=== PATIENT | male | born 1995 | race Caucasian/White ===

== ENCOUNTER 2022-09-14 08:08 | Inpatient (IN) | payer MEDICAID, OTHER ==
[2022-09-14] MEDS ORDERED: LIDOCAINE 1% INJ 10MG/ML (30 ML VIAL-PF) SQ ONE (08:43)
--- NOTE | 2022-09-14 08:51 | ED ---
Psych HPI - General Chief Complaint: Psychiatric Symptoms Stated Complaint: Wrist Lac,Psych Time Seen by Provider: 09/14/22 08:29 Source: patient, family, RN notes reviewed Mode of arrival: ambulatory Limitations: no limitations - History of Present Illness Initial Comments: This is a 27-year-old male who presents to the emergency department for psychiat clarissa evaluation. History is provided by both the patient and his father. 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 He has been struggling with PTSD significantly since then. He has also been experimenting with rastafarian, however he has not committed himself to any specific one. His father states that he has been making advent statements that seem rather odd over the last several months. Last night, his mother found him on the floor and his hands were tied with ropes and he had a knife in his hand. He then went upstairs and proceeded to scream. When his father found him upstairs, he had cuts all over his left leg and right arm. Patient states that he tried to kill himself because he made an "oath to his god". He is not currently taking any psychiatric medications nor has he ever been hospitalized for psychiatric problems. Patient otherwise denies any concerns or complaints. Denies any fevers, chills, sore throat, cough, dyspnea, chest pain, palpitations, abdominal pain, nausea, vomiting, diarrhea, back pain, or headaches. MD Complaint: suicidal ideation, feels depressed If Self Harm: admits thoughts of self harm, has plan, has acted on plan - Related Data Home Medications Medication Instructions Recorded Confirmed No Known Home Medications 09/14/22 09/14/22 Allergies Allergy/AdvReac Type Severity Reaction Status Date / Time No Known Allergies Allergy Verified 09/14/22 12:35 Review of Systems ROS Statement: Those systems with pertinent positive or pertinent negative responses have been documented in the HPI. ROS Other: All systems not noted in ROS Statement are negative. Past Medical History Past Medical History: No Reported History History of Any Multi-Drug Resistant Organisms: None Reported Past Surgical History: Adenoidectomy, Tonsillectomy Additional Past Surgical History / Comment(s): shoulder surgery Past Psychological History: No Psychological Hx Reported Smoking Status: Former smoker Past Alcohol Use History: None Reported Past Drug Use History: None Reported General Exam Limitations: no limitations General appearance: alert, in no apparent distress Head exam: Present: atraumatic, normocephalic, normal inspection Respiratory exam: Present: normal lung sounds bilaterally. Absent: respiratory distress, wheezes, rales, rhonchi, stridor Cardiovascular Exam: Present: regular rate, normal rhythm, normal heart sounds. Absent: systolic murmur, diastolic murmur, rubs, gallop, clicks Neurological exam: Present: alert, oriented X3, CN II-XII intact Psychiatric exam: Present: flat affect, suicidal ideation Skin exam: Present: other (1 cm laceration to the right forearm visible subcutaneous tissue. Multiple 1-2 cm lacerations to the top of the left thigh. Bleeding is controlled.) Course Vital Signs 09/14/22 09/14/22 08:19 12:55 Temperature 97.9 F Pulse Rate 69 73 Respiratory 18 18 Rate Blood Pressure 155/93 O2 Sat by Pulse 97 98 Oximetry Procedures - Laceration Laceration #1 Consent Obtained: verbal consent Indication: laceration Site: other (right forearm) Size (cm): 3 Description: linear Depth: simple, single layer Anesthetic Used: lidocaine 1% Anesthesia Technique: local infiltration Amount (mls): 2 Type of Sutures: nylon Size of Sutures: 4-0 Number of Sutures: 3 Technique: simple, interrupted Laceration #2 Consent Obtained: verbal consent Indication: laceration Site: other (Left thigh) Size (cm): 1 Description: linear Depth: simple, single layer Anesthetic Used: lidocaine 1% Anesthesia Technique: local infiltration Amount (mls): 2 Type of Sutures: nylon Size of Sutures: 4-0 Number of Sutures: 2 Technique: simple, interrupted Laceration #3 Consent Obtained: verbal consent Indication: laceration Site: other (left thigh) Size (cm): 2 Description: linear Depth: simple, single layer Anesthetic Used: lidocaine 1% Anesthesia Technique: local infiltration Amount (mls): 2 Size of Sutures: 5-0 Number of Sutures: 2 Technique: simple, interrupted Laceration #4 Consent Obtained: verbal consent Indication: laceration Site: other (left thigh) Size (cm): 2 Description: linear Depth: simple, single layer Anesthetic Used: lidocaine 1% Anesthesia Technique: local infiltration Amount (mls): 2 Type of Sutures: nylon Size of Sutures: 5-0 Number of Sutures: 2 Technique: simple, interrupted Laceration #5 Consent Obtained: verbal consent Indication: laceration Site: other (left thigh) Size (cm): 1 Description: linear Depth: simple, single layer Anesthetic Used: lidocaine 1% Anesthesia Technique: local infiltration Amount (mls): 1 Type of Sutures: nylon Size of Sutures: 4-0 Number of Sutures: 1 Technique: simple, interrupted Medical Decision Making - Medical Decision Making This is a 27-year-old male who presents to the emergency department for psychiatric evaluation. Was pt. sent in by a medical professional or institution? @ -No Did you speak to anyone other than the patient for history? @ -His parents Did you review nursing and triage notes? @ -Yes, and I agree, it is accurate with regards to the patient's symptoms. Were old charts reviewed? @ -No Differential Diagnosis? @ -Differential Mental Health Depression, anxiety, bipolar, psychosis, schizophrenia, borderline personality, situational depression, adjustment disorder, behavioral disorder, brain tumor, malingering, substance abuse, encephalopathy, medication reaction, dementia, hypothyroidism, degenerative neurologic disorder, lupus.... This is not meant to be all-inclusive list What testing was considered but not performed? (CT, X-rays, U/S, labs)? Why? @ -None What meds were considered but not given? Why? @ -None Did you discuss the management of the patient with other professionals? @ -Yes, EPS nurse Ludivina, who advises admission. Did you reconcile home meds? @ -No Was smoking cessation discussed for >3mins.? @ -No Was critical care preformed (if so, how long)? @ -No Were there social determinants of health that impacted care today? How? (Homelessness, low income, unemployed, alcoholism, drug addiction, transportation, low edu. Level, literacy, decrease access to med. care, intermediate, rehab)? @ -No Was there de-escalation of care discussed even if they declined? (Discuss DNR or withdrawal of care, Hospice)? @ -No What co-morbidities impacted this encounter? (DM, HTN, Smoking, COPD, CAD, Can cer, CVA, Hep., AIDS, mental health diagnosis, sleep apnea, morbid obesity)? @ -PTSD Was patient admitted / discharged? @ -Admitted. BAT was 0 and the patient was medically cleared for EPS evaluation. EPS determined that the patient meets admission criteria. I am in agreement with this due to the patient's active suicidal ideations and what appears to be untreated PTSD. He did have several lacerations with visible subcutaneous tissue that required suture placement. A total of 5 lacerations were sutured, which will need to be removed in 5-7 days. He is up-to-date on his tetanus vaccine. Patient admitted to 3 for psychiatric management. Undiagnosed new problem with uncertain prognosis? @ -None Drug Therapy requiring intensive monitoring for toxicity (Heparin, Nitro, In sulin, Cardizem)? @ -None Were any procedures done? @ -Yes, laceration repair with sutures. Diagnosis/symptom? @ -Suicidal ideation Acute, or Chronic, or Acute on Chronic? @ -Acute Uncomplicated (without systemic symptoms) or Complicated (systemic symptoms)? @ -Complicated Side effects of treatment? @ -None Exacerbation, Progression, or Severe Exacerbation] @ -Not applicable Poses a threat to life or bodily function? @ -Yes Diagnosis/symptom? @ -Lacerations Acute, or Chronic, or Acute on Chronic? @ -Acute Uncomplicated (without systemic symptoms) or Complicated (systemic symptoms)? @ -Uncomplicated Side effects of treatment? @ -None Exacerbation, Progression, or Severe Exacerbation] @ -Not applicable Poses a threat to life or bodily function? @ -No This case was discussed in detail with the attending ED physician, Dr. Thompson. Presentation, findings, and treatment plan discussed in detail as well. - Lab Data Result diagrams: 09/14/22 16:41 Lab Results 09/14/22 09/14/22 Range/Units 13:26 13:44 Urine Color Yellow Urine Appearance Cloudy (Clear) Urine pH 6.0 (5.0-8.0) Ur Specific [place] 1.013 (1.001-1.035) Urine Protein Trace H (Negative) Urine Glucose (UA) Negative (Negative) Urine Ketones 1+ H (Negative) Urine Blood Negative (Negative) Urine Nitrite Negative (Negative) Urine Bilirubin Negative (Negative) Urine Urobilinogen <2.0 (<2.0) mg/dL Ur Leukocyte Esterase Small H (Negative) Urine RBC 1 (0-5) /hpf Urine WBC 19 H (0-5) /hpf Urine Bacteria Rare H (None) /hpf Hyaline Casts 1 (0-2) /lpf Urine Mucus Rare H (None) /hpf Urine Opiates Screen Not Detected (NotDetected) Ur Oxycodone Screen Not Detected (NotDetected) Urine Methadone Screen Not Detected (NotDetected) Ur Propoxyphene Screen Not Detected (NotDetected) Ur Barbiturates Screen Not Detected (NotDetected) U Tricyclic Antidepress Not Detected (NotDetected) Ur Phencyclidine Scrn Not Detected (NotDetected) Ur Amphetamines Screen Not Detected (NotDetected) U Methamphetamines Scrn Not Detected (NotDetected) U Benzodiazepines Scrn Not Detected (NotDetected) Urine Cocaine Screen Not Detected (NotDetected) U Marijuana (THC) Screen Detected H (NotDetected) Coronavirus (PCR) Not Detected (Not Detectd) Disposition Clinical Impression: Suicidal ideation Disposition: ADMITTED IP TO THIS HOSP
[2022-09-14 13:59] LABS: Appearance,Urine Cloudy (Clear); Bacteria,Urine Rare /hpf; Bilirubin,Urine Negative (Negative); Blood,Urine Negative (Negative); Color,Urine Yellow; Glucose,Urine (UA) Negative (Negative); Hyaline Casts,Urine 1 /lpf (0-2); Ketones,Urine 1+ (Negative); Leukocyte Esterase,Urine Small (Negative); Mucus,Urine Rare /hpf; Nitrite,Urine Negative (Negative); Protein,Urine Trace (Negative); RBC,Urine 1 /hpf (0-5); Specific Gravity,Urine 1.013 (1.001-1.035); Urobilinogen,Urine <2.0 mg/dL (<2.0); WBC,Urine 19 /hpf (0-5)
[2022-09-14 14:15] LABS: Amphetamine Screen,Urine Not Detected (NotDetected); Barbiturate Screen,Urine Not Detected (NotDetected); Benzodiazepines Screen,Urine Not Detected (NotDetected); Cocaine Screen,Urine Not Detected (NotDetected); Methadone Screen, Urine Not Detected (NotDetected); Opiate Screen,Urine Not Detected (NotDetected); Oxycodone Screen, Urine Not Detected (NotDetected); Phencyclidine Screen,Urine Not Detected (NotDetected); Tricyclic Antidepressant,Urine Not Detected (NotDetected); Urn Cannabinoid Scrn Detected (NotDetected)
[2022-09-14] MEDS ORDERED: MAG HYDROX/AL HYDROX/SIMETH 30 ML CUP PO PRN (14:33)
[2022-09-14] MEDS ORDERED: MAGNESIUM HYDROXIDE 2,400 MG/10 ML CUP PO PRN (14:33)
[2022-09-14] MEDS ORDERED: MELATONIN 5 MG TABLET PO PRN (14:40)
[2022-09-14] MEDS: ACETAMINOPHEN TAB 325 MG TAB PO PRN (15:48)
[2022-09-14 17:15] LABS: Basophils % (A) 0 %; Eosinophils % (A) 0 %; HCT 43.2 % (39.0-53.0); HGB 15.5 gm/dL (13.0-17.5); Lymphocytes # (A) 1.8 k/uL (1.0-4.8); Lymphocytes % (A) 15 %; MCH 31.4 pg (25.0-35.0); MCHC 35.9 g/dL (31.0-37.0); MCV 87.7 fL (80.0-100.0); Mean Platelet Volume 8.6; Monocytes # (A) 0.7 k/uL (0-1.0); Monocytes % (A) 5 %; Neutrophils % (A) 79 %; Platelet Count 292 k/uL (150-450); RBC 4.93 m/uL (4.30-5.90); RDW 12.2 % (11.5-15.5); WBC 12.7 k/uL (3.8-10.6)
[2022-09-14 17:28] LABS: ALT 24 U/L (4-49); AST 34 U/L (17-59); African American GFR (CKD) >90 (>60 ml/min/1.73 sqM); Albumin 4.9 g/dL (3.5-5.0); Alkaline Phosphatase 51 U/L (38-126); Anion Gap 11 mmol/L; Blood Urea Nitrogen 13 mg/dL (9-20); Calcium 10.2 mg/dL (8.4-10.2); Carbon Dioxide 28 mmol/L (22-30); Chloride 99 mmol/L (98-107); Glucose 97 mg/dL (74-99); Non-African American GFR(CKD) >90 (>60 ml/min/1.73 sqM); Potassium 4.7 mmol/L (3.5-5.1); Sodium 138 mmol/L (137-145); Total Bilirubin 1.1 mg/dL (0.2-1.3); Total Protein 7.6 g/dL (6.3-8.2)
--- NOTE | 2022-09-15 03:14 | P.MDCNMH ---
History of Present Illness H&P Date: 09/14/22 Chief Complaint: suicidal ideation 27 year old male with PTSD patient brought by family for concerns regarding suicidal ideation family reported bizarre behavior recently with latter-day context, he tried to commit suicide as a sacrifice, where he used a knife to cause several self inflicted wounds , he was found screaming with rope tide to his arms. patient himself does not provide any history , and history was obtained by reviewing medical records Review of Systems ROS unobtainable: due to mental status Past Medical History Past Medical History: No Reported History History of Any Multi-Drug Resistant Organisms: None Reported Past Surgical History: Adenoidectomy, Tonsillectomy Additional Past Surgical History / Comment(s): shoulder surgery Past Psychological History: No Psychological Hx Reported Smoking Status: Former smoker Past Alcohol Use History: None Reported Past Drug Use History: None Reported Medications and Allergies Home Medications Medication Instructions Recorded Confirmed Type No Known Home Medications 09/14/22 09/14/22 History Allergies Allergy/AdvReac Type Severity Reaction Status Date / Time No Known Allergies Allergy Verified 09/14/22 12:35 Physical Exam Vitals: Vital Signs Temp Pulse Pulse Resp BP BP Pulse Ox 09/14/22 15:58 98.4 F 79 20 167/93 09/14/22 15:50 112 H 137/87 09/14/22 12:55 73 18 155/93 98 09/14/22 08:19 97.9 F 69 18 97 Intake and Output 09/14/22 09/14/22 09/15/22 14:59 22:59 06:59 Other: Weight 70.307 kg 68.3 kg Constitutional: No acute distress,limited exam , patient does not say much Eyes: Anicteric sclerae, moist conjunctiva, Pupils equal round reactive to light ENMT: NC/AT Oropharynx clear, no erythema, or exudates Neck: Supple, no masses, or JVD No carotid bruits No thyromegaly Lungs: Clear to auscultation Clear to percussion Normal respiratory effort, no accessory muscle use Cardiovascular: Heart regular in rate and rhythm, No murmurs, gallops, or rubs No peripheral edema Abdominal: Soft Nontender, no guarding, rebound or rigidity Abdomen moving with respiration Normoactive bowel sounds Skin: several sutured wounds over upper and lower extremities , on right forearm , multiple left thigh 4 times Psychiatric: Alert and oriented to person, place Neuro Muscles Strength 5/5 in all 4 extremities Sensation to light touch grossly present throughout Cranial nerves II-XII grossly intact Cranial Nerve Examination - Cranial Nerves Cranial Nerve II- Optic: Intact Cranial Nerve III- Oculomotor: Intact Cranial Nerve IV- Trochlear: Intact Cranial Nerve V- Trigeminal: Intact Cranial Nerve - Abducens: Intact Cranial Nerve VII- Facial: Intact Cranial Nerve VIII- Auditory: Intact Cranial Nerve IX- Glossopharyngeal: Intact Cranial Nerve X- Vagus: Intact Cranial Nerve XI- Accessory: Intact Cranial Nerve XII- Hypoglossal: Intact Results CBC & Chem 7: 09/14/22 16:41 09/14/22 16:41 Labs: Abnormal Lab Results - Last 24 Hours (Table) 09/14/22 09/14/22 Range/Units 13:44 16:41 WBC 12.7 H (3.8-10.6) k/uL Neutrophils # 10.0 H (1.3-7.7) k/uL Urine Protein Trace H (Negative) Urine Ketones 1+ H (Negative) Ur Leukocyte Esterase Small H (Negative) Urine WBC 19 H (0-5) /hpf Urine Bacteria Rare H (None) /hpf Urine Mucus Rare H (None) /hpf U Marijuana (THC) Screen Detected H (NotDetected) Microbiology - Last 24 Hours (Table) 09/14/22 13:44 Urine Culture - Preliminary Urine,Voided Assessment and Plan Assessment: suicidal ideation , bizarre behavior management per psych blood work reviewed , unremarkable except for mild leukocytosis most likely reactive to multiple self inflicted wounds no evidence of acute infectious process daily wound care continue to monitor off antibiotics thank you for this consultation
[2022-09-15] MEDS: ACETAMINOPHEN TAB 325 MG TAB PO PRN (08:44)
[2022-09-15] MEDS ORDERED: traZODone HCL 50 MG TAB PO PRN (14:29)
--- NOTE | 2022-09-15 14:44 | P.HP ---
Psychiatric H&P - . H&P Date: 09/15/22 History & Physical: Allergies Allergy/AdvReac Type Severity Reaction Status Date / Time No Known Allergies Allergy Verified 09/14/22 12:35 Vital Signs Temp 98.0 F 09/15/22 08:53 Pulse 97 09/15/22 08:53 Resp 16 09/15/22 08:53 BP 139/84 09/15/22 08:53 Pulse Ox 98 09/15/22 08:53 FiO2 Intake & Output 09/14/22 09/15/22 09/15/22 18:59 06:59 18:59 Weight 68.3 kg 68.3 kg Laboratory Last Values WBC 12.7 k/uL (3.8-10.6) H 09/14/22 16:41 RBC 4.93 m/uL (4.30-5.90) 09/14/22 16:41 Hgb 15.5 gm/dL (13.0-17.5) 09/14/22 16:41 Hct 43.2 % (39.0-53.0) 09/14/22 16:41 MCV 87.7 fL (80.0-100.0) 09/14/22 16:41 MCH 31.4 pg (25.0-35.0) 09/14/22 16:41 MCHC 35.9 g/dL (31.0-37.0) 09/14/22 16:41 RDW 12.2 % (11.5-15.5) 09/14/22 16:41 Plt Count 292 k/uL (150-450) 09/14/22 16:41 MPV 8.6 09/14/22 16:41 Neutrophils % 79 % 09/14/22 16:41 Lymphocytes % 15 % 09/14/22 16:41 Monocytes % 5 % 09/14/22 16:41 Eosinophils % 0 % 09/14/22 16:41 Basophils % 0 % 09/14/22 16:41 Neutrophils # 10.0 k/uL (1.3-7.7) H 09/14/22 16:41 Lymphocytes # 1.8 k/uL (1.0-4.8) 09/14/22 16:41 Monocytes # 0.7 k/uL (0-1.0) 09/14/22 16:41 Eosinophils # 0.0 k/uL (0-0.7) 09/14/22 16:41 Basophils # 0.0 k/uL (0-0.2) 09/14/22 16:41 Sodium 138 mmol/L (137-145) 09/14/22 16:41 Potassium 4.7 mmol/L (3.5-5.1) 09/14/22 16:41 Chloride 99 mmol/L (98-107) 09/14/22 16:41 Carbon Dioxide 28 mmol/L (22-30) 09/14/22 16:41 Anion Gap 11 mmol/L 09/14/22 16:41 BUN 13 mg/dL (9-20) 09/14/22 16:41 Creatinine 0.70 mg/dL (0.66-1.25) 09/14/22 16:41 Est GFR (CKD-EPI)AfAm >90 (>60 ml/min/1.73 sqM) 09/14/22 16:41 Est GFR (CKD-EPI)NonAf >90 (>60 ml/min/1.73 sqM) 09/14/22 16:41 Glucose 97 mg/dL (74-99) 09/14/22 16:[address] Glu mg/dL 107 09/14/22 16:41 Hemoglobin A1c 5.4 % (0.0-6.0) 09/14/22 16:41 Calcium 10.2 mg/dL (8.4-10.2) 09/14/22 16:41 Total Bilirubin 1.1 mg/dL (0.2-1.3) 09/14/22 16:41 AST 34 U/L (17-59) 09/14/22 16:41 ALT 24 U/L (4-49) 09/14/22 16:41 Alkaline Phosphatase 51 U/L (38-126) 09/14/22 16:41 Total Protein 7.6 g/dL (6.3-8.2) 09/14/22 16:41 Albumin 4.9 g/dL (3.5-5.0) 09/14/22 16:41 Urine Color Yellow 09/14/22 13:44 Urine Appearance Cloudy (Clear) 09/14/22 13:44 Urine pH 6.0 (5.0-8.0) 09/14/22 13:44 Ur Specific [place] 1.013 (1.001-1.035) 09/14/22 13:44 Urine Protein Trace (Negative) H 09/14/22 13:44 Urine Glucose (UA) Negative (Negative) 09/14/22 13:44 Urine Ketones 1+ (Negative) H 09/14/22 13:44 Urine Blood Negative (Negative) 09/14/22 13:44 Urine Nitrite Negative (Negative) 09/14/22 13:44 Urine Bilirubin Negative (Negative) 09/14/22 13:44 Urine Urobilinogen <2.0 mg/dL (<2.0) 09/14/22 13:44 Ur Leukocyte Esterase Small (Negative) H 09/14/22 13:44 Urine RBC 1 /hpf (0-5) 09/14/22 13:44 Urine WBC 19 /hpf (0-5) H 09/14/22 13:44 Urine Bacteria Rare /hpf (None) H 09/14/22 13:44 Hyaline Casts 1 /lpf (0-2) 09/14/22 13:44 Urine Mucus Rare /hpf (None) H 09/14/22 13:44 Urine Opiates Screen Not Detected (NotDetected) 09/14/22 13:44 Ur Oxycodone Screen Not Detected (NotDetected) 09/14/22 13:44 Urine Methadone Screen Not Detected (NotDetected) 09/14/22 13:44 Ur Propoxyphene Screen Not Detected (NotDetected) 09/14/22 13:44 Ur Barbiturates Screen Not Detected (NotDetected) 09/14/22 13:44 U Tricyclic Antidepress Not Detected (NotDetected) 09/14/22 13:44 Ur Phencyclidine Scrn Not Detected (NotDetected) 09/14/22 13:44 Ur Amphetamines Screen Not Detected (NotDetected) 09/14/22 13:44 U Methamphetamines Scrn Not Detected (NotDetected) 09/14/22 13:44 U Benzodiazepines Scrn Not Detected (NotDetected) 09/14/22 13:44 Urine Cocaine Screen Not Detected (NotDetected) 09/14/22 13:44 U Marijuana (THC) Screen Detected (NotDetected) H 09/14/22 13:44 Coronavirus (PCR) Not Detected (Not Detectd) 09/14/22 13:26 09/15/22 14:36 IDENTIFYING DATA: Patient is a 27-year-old male, currently lives with his parents in a house, 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 HPI: Patient presented to the hospital yesterday by his father. 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 Patient apparently has a history of PTSD and also as reported by father according the ER report that he has been having more odd bahai beliefs and statements and attempted suicide at home, cutting himself several times. Patient apparently was found on the floor with his hands tied and a knife in his hands as well. He had several cuts on his arms and legs. His urine drug screen was positive for THC. Patient was admitted and signed voluntary. He was seen today and agreeable to scientific technical writer in the office. Patient appeared to have very poor eye contact and appeared to be depressed and upset. He was tearful at times. He states that he did attempt suicide at home by cutting himself. He claims that he was feeling "very confused". He had a difficult time verbalizing his stressors however did state that he has been feeling depression also admitted to anxiety. He claims that he has been sleeping fairly and using marijuana to cope. He gave fairly vague answers at times. He states that he did have multiple attempts at suicide and was tearful in describing what he did tell himself. He states that "I must of been feeling bad about something". He did not relate any delusions or paranoia at this time. States that his sleep is then on and off, appetite as been fair. He had significant thought blocking during the interview and appeared to be irritable at times and had poor concentration. 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 He is denying any flashbacks and denying any nightmares. patient denies any current suicidal or homicidal ideations intent or plan. At this time patient denies any auditory or visual hallucinations. Patient denies any flight of ideas racing thoughts and increased in goal directed behavior. Patient admits to using marijuana frequently, about one joint a day. Denies any other recreational drug use. PAST PSYCHIATRIC HISTORY: Patient states that he has history of PTSD, depression and anxiety. Patient denies being on any psychiatric medications. Patient denies any previous psychiatric hospitalizations. Patient denies any psychiatric outpatient follow-up. She states that he did have 1 suicide attempt in the past where he cut himself about a year ago. PMH: As per ER note ALLERGIES: as per EMR CHEMICAL DEPENDENCY HISTORY: as per HPI FAMILY PSYCHIATRIC/SUBSTANCE USE HISTORY: He claims that his aunt has schizophrenia and his mom may have bipolar disorder SOCIAL HISTORY: Patient was born and raised in [facility]. He states that he completed high school and did some college locally. 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 Patient is currently unmarried, has no kids. He lives with his parents. He claims that he did get a DUI about a year ago. MENTAL STATUS EXAM: General Appearance: Patient appears to be short in stature, tearful at times, appears to be impulsive, stated age is alert, attempts to cooperate however is confused at times. Patient appears to have fair hygiene and grooming. Has several tattoos on his arms. Behavior: Patient is seated without any agitated behavior. Tearful at times. Poor eye contact. Speech: Patient's speech is fluent and nonpressured. Hesitant. Bieber. Mood/Affect: Patient reports their mood is depressed and anxious, affect is congruent Suicidality/Homicidality: Patient denies having any homicidal ideation intent or plan. Denies any suicidal ideations intent or plan Perceptions: Patient denies any visual hallucinations and denies any auditory h allucinations Though content/process: Bieber, poverty of content. Vague at times. Memory and concentration: AOX3, poor concentration. Cannot spell "WORLD" backwards Judgment and insight: poor/impulsive STRENGTHS/WEAKNESSES: strength is that patient is resilient. Weakness is that patient has poor judgment and is impulsive INTELLECT: average IMPRESSIONS: Major depressive disorder, severe, recurrent PTSD Cannabis use disorder PLAN: -Patient is admitted under voluntary status to [facility] for stabilization of psychiatric symptoms and safety. Patient has signed adult voluntary form and medication consent and is placed in patient's chart. -Medications : Will start patient on Zoloft 50 mg daily for mood/anxiety, Abilify 2.5 mg daily for mood stabilization/adjunct. Trazodone when necessary f or sleep. Melatonin scheduled for sleep. -zyprexa PRN for agitation/aggression -Patient was counselled on substance abuse and desired to cut back on use -Patient was informed of the risks, benefits and side effects of the medication and patient verbally consented to taking the medications. Patient signed med consent form and was placed in chart. -Internal Medicine consult to perform medical evaluation and physical. -NRT - not needed as patient does not smoke -SW on board for discharge planning. Encourage patient to participate in groups to work on coping skills.
[2022-09-15] MEDS: SERTRALINE 50 MG TAB PO SCH (15:22)
[2022-09-15] MEDS: ARIPiprazole 5 MG TAB PO SCH (15:25)
[2022-09-15 15:41] LABS: Chol/HDL Ratio 3.24 Ratio; LDL Cholesterol,Calculated 97.8 mg/dL (0.0-131.0)
[2022-09-15] MEDS: MELATONIN 3 MG TABLET PO SCH (20:51)
[2022-09-16] MEDS: ARIPiprazole 5 MG TAB PO SCH (08:36)
[2022-09-16] MEDS: SERTRALINE 50 MG TAB PO SCH (08:36)
--- NOTE | 2022-09-16 10:00 | P.PN ---
Progress Note - Text Progress Note Date: 09/16/22 Interval History: Patient was seen laying in bed and was directable and agreeable to speak with chief writer in the office. [he appeared to be more awake today and less confused during conversation. he continues to be concrete. he does appear to have an improvement in his affect. He continues to be hesitant in his speech]. he states that he was going to groups and was up for meals. he continues to state that heis feeling depressed and anxious but it is improving. He states that he is feeling mildly more hopeful. At this time patient denies any suicidal or homical ideations, intent or plan. Patient denies any auditory, visual hallucinations and denies any paranoia or delusions. Patient denies any side effects from the medications and has been compliant with meds. Mental Status Exam: General Appearance: Patient appears to be short in stature, not tearful today, less impulsive, stated age is alert, attempts to cooperate however is less confused. Patient appears to have fair hygiene and grooming. Has several tattoos on his arms Behavior: Patient is seated without any agitated behavior. not tearful. improving eye contact. Speech: Patient's speech is fluent and nonpressured. Hesitant. [place]. Mood/Affect: Patient reports their mood is depressed and anxious, improving mildly, affect is congruent, improving Suicidality/Homicidality: Patient denies having any homicidal ideation intent or plan. Denies any suicidal ideations intent or plan Perceptions: Patient denies any visual hallucinations and denies any auditory hallucinations Though content/process: [place], poverty of content. Memory and concentration: AOX3, poor concentration Judgment and insight: poor/impulsive, improving mildly IMPRESSIONS: Major depressive disorder, severe, recurrent PTSD Cannabis use disorder PLAN: -Patient is admitted under voluntary status to [facility] for stabilization of psychiatric symptoms and safety. Patient has signed adult voluntary form and medication consent and is placed in patient's chart. -Medications : increasing Zoloft 75 mg daily for mood/anxiety, increase Abilify 5 mg daily for mood stabilization/adjunct. Trazodone when necessary for sleep. Melatonin scheduled for sleep. -zyprexa PRN for agitation/aggression -NRT - not needed as patient does not smoke -SW on board for discharge planning. Encourage patient to participate in groups to work on coping skills.
[2022-09-16] MEDS: traZODone HCL 100 MG TAB PO SCH (21:39)
[2022-09-16] MEDS: MELATONIN 3 MG TABLET PO SCH (21:39)
[2022-09-17] MEDS ORDERED: SERTRALINE 25 MG TAB PO SCH (09:00)
[2022-09-17] MEDS ORDERED: ARIPiprazole 5 MG TAB PO SCH (09:00)
--- NOTE | 2022-09-17 11:41 | P.PN ---
Progress Note - Text Progress Note Date: 09/17/22 Interval History: Patient was seen wandering in the hallways and was directable and agreeable to speak with contract technical writer in the office. Patient continues to be fairly hesitant and long pauses before answering questions. [he appeared to be more awake today, appears to be fairly anxious today. he continues to be concrete. he does appear to have mild improvement in his affect. he states that he was going to groups and was up for meals, states that he did go to goal setting group today and states that his goalis to "socialize more". he continues to state that he is feeling depressed and anxious but it is improving. At this time patient denies any suicidal or homical ideations, intent or plan. Patient denies any auditory, visual hallucinations and denies any paranoia or delusions. Patient denies any side effects from the medications and has been compliant with meds. Mental Status Exam: General Appearance: Patient appears to be short in stature, not tearful today, less impulsive, stated age is alert, attempts to cooperate. Patient appears to have fair hygiene and grooming. Has several tattoos on his arms Behavior: Patient is seated without any agitated behavior. not tearful. improving eye contact. Speech: Patient's speech is fluent and nonpressured. Hesitant. [place]. Mood/Affect: Patient reports their mood is improving mildly, affect is congruent, improving Suicidality/Homicidality: Patient denies having any homicidal ideation intent or plan. Denies any suicidal ideations intent or plan Perceptions: Patient denies any visual hallucinations and denies any auditory hallucinations Though content/process: [place], poverty of content Memory and concentration: AOX3, poor concentration Judgment and insight: poor/impulsive, improving mildly IMPRESSIONS: Major depressive disorder, severe, recurrent PTSD Cannabis use disorder PLAN: -Patient is admitted under voluntary status to [facility]HU for stabilization of psychiatric symptoms and safety. Patient has signed adult voluntary form and medication consent and is placed in patient's chart. -Medications : increasing Zoloft 100 mg daily for mood/anxiety, increase Abilify 7.5 mg daily for mood stabilization/adjunct. Trazodone 100 mg qhs for insomnia. Melatonin scheduled for sleep. -zyprexa PRN for agitation/aggression -NRT - not needed as patient does not smoke -SW on board for discharge planning. Encourage patient to participate in groups to work on coping skills.
[2022-09-17] MEDS: traZODone HCL 100 MG TAB PO SCH (21:00)
[2022-09-17] MEDS: MELATONIN 3 MG TABLET PO SCH (21:01)
[2022-09-18] MEDS ORDERED: ARIPiprazole 5 MG TAB PO SCH (09:00)
[2022-09-18] MEDS: SERTRALINE 100 MG TAB PO SCH (09:27)
--- NOTE | 2022-09-18 11:26 | P.PN ---
Progress Note - Text Progress Note Date: 09/18/22 Interval History: Patient was seen lying in his bed this morning and was agreeable to speak to donna camara in the office. Apparently patient went to goal setting group however was not able to speak about his goals and what he wants to accomplish. He continues to state that he is feeling depressed and anxious and believes that he has not been improving so far. He continues to be fairly hesitant and have long positives in between his answers of questions. Continues to be difficult to redirect during conversation and poor eye contact and was concrete. He claims that he slept "on and off" last night however was not able to give a good representation of his sleep pattern. He continues to be fairly isolative on the unit was encouraged to go to groups more. He states that he did speak with his parents yesterday and did state that it was brief however did not claim or state what they talked about. According to nursing report that patient's mother states that the patient is still not doing well and not communicating to them. He continues to appear to be minimizing his need for treatment and hospitalization and feels he is not improving. Claims have a fair appetite however patient has not been eating much due to his diet. At this time patient denies any homical ideations, intent or plan. Patient states that he is still having some suicidal thoughts today however no intent or plan. Patient denies any auditory, visual hallucinations and denies any paranoia or delusions. Patient denies any side effects from the medications and has been compliant with meds. Mental Status Exam: General Appearance: Patient appears to be short in stature, not tearful today, less impulsive, stated age is alert, attempts to cooperate. Patient appears to have fair hygiene and grooming. Has several tattoos on his arms Behavior: Patient is seated without any agitated behavior. Poor eye contact. Speech: Patient's speech is fluent. Hesitant. [place]. Long pauses. Mood/Affect: Patient reports their mood is improving mildly, affect is congruent, improving Suicidality/Homicidality: Patient denies having any homicidal ideation intent or plan. Denies any suicidal ideations intent or plan Perceptions: Patient denies any visual hallucinations and denies any auditory hallucinations Though content/process: [place], poverty of content. No delusions. Memory and concentration: AOX3, poor concentration Judgment and insight: poor IMPRESSIONS: Major depressive disorder, severe, recurrent PTSD Cannabis use disorder PLAN: -Patient is admitted under voluntary status to MHU for stabilization of psychiatric symptoms and safety. Patient has signed adult voluntary form and medication consent and is placed in patient's chart. -Medications : Zoloft 100 mg daily for mood/anxiety will continue titrating up, increase Abilify 10 mg daily for mood stabilization/adjunct. increase Trazodone 150 mg qhs for insomnia. increase Melatonin 10 mg qhs scheduled for sleep. -zyprexa PRN for agitation/aggression -NRT - not needed as patient does not smoke -SW on board for discharge planning. Encourage patient to participate in groups to work on coping skills. asked patient and nursing staff to keep a better eye on sleep and patterns to get a better idea.
[2022-09-18] MEDS: MELATONIN 5 MG TABLET PO SCH (20:34)
[2022-09-18] MEDS ORDERED: traZODone HCL 50 MG TAB PO SCH (21:00)
[2022-09-19] MEDS ORDERED: ARIPiprazole 10 MG TAB PO SCH (09:00)
[2022-09-19] MEDS: SERTRALINE 100 MG TAB PO SCH (09:41)
--- NOTE | 2022-09-19 10:33 | P.PN ---
Progress Note - Text Progress Note Date: 09/19/22 Interval History: Patient was seen lying in his bed this morning and was approached by tech writer to day to speak in the office. Patient was placed on a one-to-one sitter overnight due to patient being paranoid demand to leave and checking doors repeatedly. Patient states her tech writer that "I'll talk to you maybe and a minute". He ended up coming to tech writer's office several minutes later to speak. He was trying to minimize what had occurred last night when asked about it. She states that "I have to try to leave for personal reasons that it rather not talk about". He continues to ask suspicious and paranoid. Continues to demonstrate poor impulse control and hesitancies/thought blocking. He claims that his anxiety and mood are "fine" and appears to be minimizing. Continues to have a constricted affect. We spoke about other medication options and patient is agreeable. He continues to be focused on discharge at times. He states that he did talk to his father yesterday and states that "I just told them I love them" and ended the conversation. Claims have a fair appetite however patient has not been eating much due to his diet. At this time patient denies any homical ideations, intent or plan. Patient denies any suicidal thoughts today, no intent or plan. Patient denies any auditory, visual hallucinations and denies any paranoia or delusions. Patient denies any side effects from the medications and has been compliant with meds. Mental Status Exam: General Appearance: Patient appears to be short in stature, not tearful today, impulsive, stated age is alert, attempts to cooperate. Patient appears to have fair hygiene and grooming. Has several tattoos on his arms Behavior: Patient is seated without any agitated behavior. Poor eye contact. Superficial. Speech: Patient's speech is fluent. Hesitant. [place]. Long pauses. Mood/Affect: Patient reports their mood is improving mildly, affect is congruent, improving Suicidality/Homicidality: Patient denies having any homicidal ideation intent or plan. Denies any suicidal ideations intent or plan Perceptions: Patient denies any visual hallucinations and denies any auditory hallucinations Though content/process: [place], poverty of content. No delusions. Focused on discharge. Memory and concentration: AOX3, poor concentration Judgment and insight: poor/impulsive. IMPRESSIONS: Major depressive disorder, severe, recurrent PTSD Cannabis use disorder PLAN: -Patient is admitted under voluntary status to MHU for stabilization of psychiatric symptoms and safety. Patient has signed adult voluntary form and medication consent and is placed in patient's chart. -Medications : Increase Zoloft 150 mg daily for mood/anxiety will continue titrating up, d/c Abilify and swiotch to zyprexa 7.5 mg qhs for insomnia/psychosis/mood stabilization. change trazodone 50 mg qhs prn for insomnia. Melatonin 10 mg qhs scheduled for sleep. -zyprexa PRN for agitation/aggression -NRT - not needed as patient does not smoke -SW on board for discharge planning. Encourage patient to participate in groups to work on coping skills. will re-evaluate need for 1:1 sitter today with team.
[2022-09-19] MEDS: hydrOXYzine pamoate 25 MG CAP PO PRN (17:58)
[2022-09-19] MEDS: MELATONIN 5 MG TABLET PO SCH (19:53)
[2022-09-19] MEDS: OLANZapine 7.5 MG TAB PO SCH (19:53)
[2022-09-19] MEDS: traZODone HCL 50 MG TAB PO PRN (19:54)
[2022-09-19] MEDS ORDERED: LORazepam 1 MG TAB PO PRN (20:04)
--- NOTE | 2022-09-19 21:25 | P.MHFACE ---
Face to Face Restrain/Seclus - Evaluation Patient's Immediate Situation: Endangers self safety, Endangers staff safety Patient's Reaction to the Intervention: Appropriate, Calm Patient's Medical & Behavioral Condition: Awake, Follows directions Need to Continue or Terminate Restraint or Seclusion: Continue Need to Continue or Terminate Restraint/Seclusion - Comment: Informed by the mental health unit RN that the patient was attempting to elope by bashing on the doors. He had also gotten into there is a unit that he was not supposed to and was no longer following commands and being impulsive. The patient was physically evaluated in the mental health unit with 4 point restraints. The patient had good dorsalis pedis and radial pulses distally to the restraints. He was calm and appropriate and was answering questions. Continue with restraints for now with plans to discontinue as soon as patient is fully directable and no longer a threat to self, other patients, or the staff. Face to Face Eval of Restraint Date: 09/19/22 Face to Face Eval of Restraint Time: 20:36
[2022-09-19] MEDS ORDERED: OLANZapine 10 MG VIAL IM PRN (23:57)
[2022-09-20] MEDS: hydrOXYzine pamoate 25 MG CAP PO PRN ×3 (09:09→20:13)
[2022-09-20] MEDS: SERTRALINE 50 MG TAB PO SCH (09:09)
--- NOTE | 2022-09-20 10:42 | P.PN ---
Progress Note - Text Progress Note Date: 09/20/22 Subjective/objective data: The patient was seen while he was struggling in the corridor with a one-to-one staff member tacking alone The patient initially went to an empty room and sat down on the bed When approached patient agreed to talk Patient however takes long pauses before any response Patient's compensation seems to be brief Patient states that he was trying to get out of here Patient is unable to give any further information Is unable to concentrate or focus remains preoccupied No EPS or tremors noted Mental Status Exam: General Appearance: Patient appears to be short in stature, stated age is alert, attempts to cooperate. Patient appears to have fair hygiene and grooming. Has several tattoos on his arms Behavior: Patient is seated without any agitated behavior. Poor eye contact. Superficial. Speech: Patient's speech is fluent. Hesitant. [place]. Long pauses. Mood/Affect: [place] Suicidality/Homicidality: Patient didn't respond either an affirmative or negative Patient appears to be having difficulty with concentration and attention span Perceptions: Unable to assess Though content/process: [place], poverty of content. Focused on discharge. Memory and concentration: AOX3, poor concentration Judgment and insight: poor/impulsive. IMPRESSIONS: Major depressive disorder, severe, recurrent Intermittent explosive disorder PTSD Cannabis use disorder PLAN: -Patient is admitted under voluntary status to MHU for stabilization of psychiatric symptoms and safety. Patient has signed adult voluntary form and medication consent and is placed in patient's chart. Patient is currently on Zoloft 150 mg daily for mood/anxiety will continue titrating up, zyprexa 7.5 mg qhs for insomnia/psychosis/mood stabilization. trazodone 50 mg qhs prn for insomnia. Melatonin 10 mg qhs scheduled for sleep. -zyprexa PRN for agitation/aggression -NRT - not needed as patient does not smoke -SW on board for discharge planning. Encourage patient to participate in groups to work on coping skills. will re-evaluate need for 1:1 sitter today with team. Patient has received several when necessary Zyprexa and lorazepam for severe agitation Continue current can support Monitor for EPS tremors tardive dyskinesia akathisia QTC prolongation Chino Gardner M.D.
[2022-09-20] MEDS: OLANZapine ODT 5 MG TAB PO PRN (15:20)
[2022-09-20] MEDS: LORazepam 1 MG TAB PO PRN ×2 (17:31→20:14)
[2022-09-20] MEDS: OLANZapine 7.5 MG TAB PO SCH (20:13)
[2022-09-20] MEDS: MELATONIN 5 MG TABLET PO SCH (20:14)
[2022-09-20] MEDS: traZODone HCL 50 MG TAB PO PRN (20:14)
[2022-09-21] MEDS: SERTRALINE 50 MG TAB PO SCH (08:43)
--- NOTE | 2022-09-21 08:57 | P.PN ---
Progress Note - Text Progress Note Date: 09/21/22 The patient was seen for follow-up Subjective/objective data: The patient was sitting in his room on the side of the bed in a slouched posture Patient to when approached stated that he was feeling better but did not elaborate Patient remains on 1:1 observation Patient however takes long pauses before any response Patient's compensation seems to be brief Patient states that he was trying to get out of here Patient is unable to give any further information Is unable to concentrate or focus remains preoccupied No EPS or tremors noted Mental Status Exam: General Appearance: Patient appears to be short in stature, stated age is alert, attempts to cooperate. Patient appears to have fair hygiene and grooming. Has several tattoos on his arms Behavior: Patient is seated without any agitated behavior. Poor eye contact. Superficial. Speech: Patient's speech is fluent. Hesitant. [place]. Long pauses. Mood/Affect: [place] Suicidality/Homicidality: Patient didn't respond either an affirmative or negative Patient appears to be having difficulty with concentration and attention span Perceptions: Unable to assess Though content/process: [place], poverty of content. Focused on discharge. Memory and concentration: AOX3, poor concentration Judgment and insight: poor/impulsive. IMPRESSIONS: Major depressive disorder, severe, recurrent Intermittent explosive disorder PTSD Cannabis use disorder PLAN: -Patient is admitted under voluntary status to MHU for stabilization of psychiatric symptoms and safety. Patient has signed adult voluntary form and medication consent and is placed in patient's chart. Patient is currently on Zoloft 150 mg daily for mood/anxiety will continue ti trating up, zyprexa 7.5 mg qhs for insomnia/psychosis/mood stabilization. trazodone 50 mg qhs prn for insomnia. Melatonin 10 mg qhs scheduled for sleep. -zyprexa PRN for agitation/aggression -NRT - not needed as patient does not smoke -SW on board for discharge planning. Encourage patient to participate in groups to work on coping skills. will re-evaluate need for 1:1 sitter today with team. Patient has received several when necessary Zyprexa and lorazepam for severe agitation Continue current can support Monitor for EPS tremors tardive dyskinesia akathisia QTC prolongation Chino Gardner M.D.
[2022-09-21] MEDS: LORazepam 1 MG TAB PO PRN ×3 (09:22→21:07)
[2022-09-21] MEDS: OLANZapine ODT 5 MG TAB PO PRN ×2 (09:38→15:32)
[2022-09-21] MEDS: hydrOXYzine pamoate 25 MG CAP PO PRN ×3 (09:39→21:07)
[2022-09-21] MEDS ORDERED: OLANZapine 5 MG TAB PO ONE (11:45)
[2022-09-21] MEDS ORDERED: LORazepam 1 MG TAB PO ONE (11:45)
[2022-09-21] MEDS: OLANZapine 7.5 MG TAB PO SCH (21:07)
[2022-09-21] MEDS: MELATONIN 5 MG TABLET PO SCH (21:07)
[2022-09-21] MEDS: traZODone HCL 50 MG TAB PO PRN (21:07)
[2022-09-22] MEDS: SERTRALINE 50 MG TAB PO SCH (08:24)
[2022-09-22] MEDS ORDERED: SERTRALINE 50 MG TAB PO STA (11:41)
--- NOTE | 2022-09-22 13:11 | P.PN ---
Progress Note - Text Progress Note Date: 09/22/22 Interval History: Patient was seen lying in his bed this morning and staring at the ceiling. Chele solorzano is on iron and a one-to-one sitter as patient was aggressive, demanding to leave and needed prn medications as he was not directable. Patient was agreeable to speak to bond underwriter. He continues to be hesitant in his speech. He continues to minimize what had occurred over the weekend. He states that "I was just feeling angry I couldn't leave". She was fairly superficial and guarded still. He still appears to be anxious however claims that his anxiety and mood has been improving. He continues to have very limited insight and judgment. Continues to have a constricted affect. We spoke about other medication options and patient is agreeable to have them adjusted. patient continues to struggle at nighttime with sleep and states that his only been sleeping about 4 hours or so interrupted. At this time patient denies any suicidal or homical ideations, intent or plan. Patient denies any auditory, visual hallucinations and denies any paranoia or delusions. Patient denies any side effects from the medications and has been compliant with meds. Mental Status Exam: General Appearance: Patient appears to be short in stature, not tearful today, impulsive, stated age is alert, attempts to cooperate. Patient appears to have fair hygiene and grooming. Has several tattoos on his arms Behavior: Patient is seated without any agitated behavior. Poor eye contact. Superficial. Speech: Patient's speech is fluent. Hesitant. [place]. Long pauses. Mood/Affect: Patient reports their mood is improving mildly, affect is congruent, improving Suicidality/Homicidality: Patient denies having any homicidal ideation intent or plan. Denies any suicidal ideations intent or plan Perceptions: Patient denies any visual hallucinations and denies any auditory hallucinations Though content/process: [place], poverty of content. No delusions. Focused on discharge. Memory and concentration: AOX3, poor concentration Judgment and insight: poor/impulsive, improving moderately. IMPRESSIONS: Major depressive disorder, severe, recurrent PTSD Cannabis use disorder PLAN: -Patient is admitted under voluntary status to MHU for stabilization of psychiatric symptoms and safety. Patient has signed adult voluntary form and medication consent and is placed in patient's chart. -Medications : Increase Zoloft 200 mg daily for mood/anxiety will continue titrating up, increase zyprexa 15 mg qhs for insomnia/psychosis/mood stabilization. d/c Melatonin and trazodone. will consider adding depakote or lithium if needed. -zyprexa PRN for agitation/aggression -NRT - not needed as patient does not smoke -SW on board for discharge planning. Encourage patient to participate in groups to work on coping skills. continue with 1:1 sitter today as patient continues to have impulse control issues and unpredictable.
[2022-09-22] MEDS: LORazepam 1 MG TAB PO PRN (20:44)
[2022-09-22] MEDS: hydrOXYzine pamoate 25 MG CAP PO PRN (20:44)
[2022-09-22] MEDS ORDERED: OLANZapine 7.5 MG TAB PO SCH (21:00)
[2022-09-22] MEDS ORDERED: WATER FOR INJECTION, STERILE 10 ML IV ONE (22:24)
[2022-09-23] MEDS: SERTRALINE 100 MG TAB PO SCH (08:48)
[2022-09-23] MEDS: LORazepam 1 MG TAB PO PRN ×2 (08:49→21:01)
[2022-09-23] MEDS ORDERED: busPIRone HCl 10 MG TAB PO SCH (10:15)
--- NOTE | 2022-09-23 10:38 | P.PN ---
Progress Note - Text Progress Note Date: 09/23/22 Interval History: Patient was seen wandering the hallways this morning and was agreeable to speak a staff writer in the office. Patient continues to be on a one-to-one sitter due to aggressiveness and impulsivity issues. Patient did receive prn medications this morning. Patient has mildly improving affect today however continues to be hesitant in his speech. He is not reporting any complaints and continues to be superficial with staff writer. He was thankful for treatment today. He continues to state that he feels impulsive and does not know if he would harm himself or not. He claims that he is trying to go to some groups and was seen participating in the social work program coordinator this morning. He states that he slept better last night and was feeling tired this morning. We spoke about other medication options that she is okay to take lithium today. He states that he did speak with his father and states that he asked for forgiveness however did not say why. At this time patient denies any suicidal or homical ideations, intent or plan although patient states that he may or does not feel comfortable with himself. Patient denies any auditory, visual hallucinations and denies any paranoia or delusions. Patient denies any side effects from the medications and has been compliant with meds. Mental Status Exam: General Appearance: Patient appears to be short in stature, not tearful today, impulsive, stated age is alert, attempts to cooperate. Patient appears to have fair hygiene and grooming. Has several tattoos on his arms Behavior: Patient is seated without any agitated behavior. Improving eye contact. Superficial, improving mildly. Speech: Patient's speech is fluent. Hesitant. [place]. Long pauses. Mood/Affect: Patient reports their mood is improving mildly, affect is congruent, improving Suicidality/Homicidality: Patient denies having any homicidal ideation intent or plan. Denies any suicidal ideations intent or plan Perceptions: Patient denies any visual hallucinations and denies any auditory hallucinations Though content/process: [place], poverty of content. No delusions. Memory and concentration: AOX3, poor concentration Judgment and insight: poor/impulsive, improving mildly IMPRESSIONS: Major depressive disorder, severe, recurrent PTSD Cannabis use disorder PLAN: -Patient is admitted under voluntary status to MHU for stabilization of psychiatric symptoms and safety. Patient has signed adult voluntary form and medication consent and is placed in patient's chart. -Medications : continue Zoloft 200 mg daily for mood/anxiety, zyprexa 15 mg qhs for insomnia/psychosis/mood stabilization. added lithium 150 mg tid for suicidal thoughts/ mood stabilization. -zyprexa PRN for agitation/aggression -NRT - not needed as patient does not smoke -SW on board for discharge planning. Encourage patient to participate in groups to work on coping skills. We'll reevaluate today one-to-one sitter with treatment team due to patient's poor impulse control.
[2022-09-23] MEDS: LITHIUM CARBONATE 150 MG CAP PO SCH ×3 (10:51→21:02)
[2022-09-23] MEDS: OLANZapine 10 MG TAB PO SCH (21:01)
[2022-09-23] MEDS: OLANZapine ODT 5 MG TAB PO PRN (21:01)
[2022-09-24] MEDS: LITHIUM CARBONATE 150 MG CAP PO SCH (10:45)
[2022-09-24] MEDS: SERTRALINE 100 MG TAB PO SCH (10:45)
--- NOTE | 2022-09-24 13:09 | P.PN ---
Progress Note - Text Progress Note Date: 09/24/22 Interval History: Patient was seen wandering the hallways this morning and had his 1:1 sitter di scontinue. He was agreeable to speak with promotion writer in the office today. Patient did receive prn medications ;last night due to agitation and lack of sleep. Patient has mildly improving affect today and was more directable. he continues to be hesitant in his speech. He is not reporting any complaints and states that he is feeliong "more myself". He claims that he is trying to go to some groups. He states that he slept better last night however did not mention what had occured over night or holden many hours he slept. At this time patient denies any suicidal or homical ideations, intent or plan. Patient denies any auditory, visual hallucinations and denies any paranoia or delusions. Patient denies any side effects from the medications and has been compliant with meds. Mental Status Exam: General Appearance: Patient appears to be short in stature, not tearful today, impulsive, stated age is alert, attempts to cooperate. Patient appears to have fair hygiene and grooming. Has several tattoos on his arms Behavior: Patient is seated without any agitated behavior. Improving eye contact. Superficial, improving Speech: Patient's speech is fluent. Hesitant. [place]. Long pauses, improving mildly Mood/Affect: Patient reports their mood is improving mildly, affect is congruent, improving Suicidality/Homicidality: Patient denies having any homicidal ideation intent or plan. Denies any suicidal ideations intent or plan Perceptions: Patient denies any visual hallucinations and denies any auditory hallucinations Though content/process: [place], poverty of content. No delusions. Memory and concentration: AOX3, improving concentration Judgment and insight: poor/impulsive, improving mildly IMPRESSIONS: Major depressive disorder, severe, recurrent PTSD Cannabis use disorder PLAN: -Patient is admitted under voluntary status to [facility] for stabilization of psychiatric symptoms and safety. Patient has signed adult voluntary form and medication consent and is placed in patient's chart. -Medications : continue Zoloft 200 mg daily for mood/anxiety, zyprexa 20 mg qhs for insomnia/psychosis/mood stabilization. change lithobid to 450 mg daily for suicidal thoughts/ mood stabilization. trazodone 100 mg qhs for insomnia/mood -zyprexa PRN for agitation/aggression -NRT - not needed as patient does not smoke -SW on board for discharge planning. Encourage patient to participate in groups to work on coping skills. We'll reevaluate today one-to-one sitter as patient usually gets more agitated in the nighttime.
[2022-09-24] MEDS: LITHIUM CARBONATE ER 450 MG TABLET.ER PO SCH (14:06)
[2022-09-24] MEDS ORDERED: traZODone HCL 50 MG TAB PO SCH (21:00)
[2022-09-24] MEDS: OLANZapine 10 MG TAB PO SCH (21:05)
[2022-09-24] MEDS: traZODone HCL 100 MG TAB PO SCH (21:05)
[2022-09-25] MEDS: LITHIUM CARBONATE ER 450 MG TABLET.ER PO SCH (09:07)
[2022-09-25] MEDS: SERTRALINE 100 MG TAB PO SCH (09:07)
[2022-09-25] MEDS: LORazepam 1 MG TAB PO PRN (09:08)
[2022-09-25] MEDS: OLANZapine ODT 5 MG TAB PO PRN (09:44)
--- NOTE | 2022-09-25 09:45 | P.PN ---
Progress Note - Text Progress Note Date: 09/25/22 Interval History: Patient was seen in the morning in his room and was agreeable to speak to sign writer letterer or painter in the office. Patient did receive prn medications ativan this morning for anxiety. last night patient did not require a 1:1 sitter and apparently slept better. he states that he was able to sleep throughout the night. He continues to be fairly concrete, poverty of speech. He appears to be more appropriate during interaction today. Continues to have limited eye contact. He states that he is going to some groups. Claims that his appetite is fair. At this time patient denies any suicidal or homical ideations, intent or plan. Patient denies any auditory, visual hallucinations and denies any paranoia or delusions. Patient denies any side effects from the medications and has been compliant with meds. Mental Status Exam: General Appearance: Patient appears to be short in stature, not tearful today, less impulsive, stated age is alert, attempts to cooperate. Patient appears to have fair hygiene and grooming. Has several tattoos on his arms Behavior: Patient is seated without any agitated behavior. Improving eye contact, improving Speech: Patient's speech is fluent.[place]. Long pauses, improving mildly Mood/Affect: Patient reports their mood is improving mildly, affect is con gruent, improving Suicidality/Homicidality: Patient denies having any homicidal ideation intent or plan. Denies any suicidal ideations intent or plan Perceptions: Patient denies any visual hallucinations and denies any auditory hallucinations Though content/process: [place], poverty of content. No delusions. Memory and concentration: AOX3, improving concentration Judgment and insight: poor/impulsive, improving mildly IMPRESSIONS: Major depressive disorder, severe, recurrent PTSD Cannabis use disorder PLAN: -Patient is admitted under voluntary status to [facility] for stabilization of psychia tric symptoms and safety. Patient has signed adult voluntary form and medication consent and is placed in patient's chart. -Medications : continue Zoloft 200 mg daily for mood/anxiety, zyprexa 20 mg qhs for insomnia/psychosis/mood stabilization. lithobid 450 mg daily for suicidal thoughts/ mood stabilization. trazodone 100 mg qhs for insomnia/mood, added vistaril 25 mg at 0900 and 1300 for anxiety. -zyprexa and ativan PRN for agitation/aggression -NRT - not needed as patient does not smoke -SW on board for discharge planning. Encourage patient to participate in groups to work on coping skills. patient is off 1:1 sitter, improving psychiatrically however will continues to remain high risk for self harm chronically. will look at transferring onto [facility] services through [facility] and poss d/c tomorrow vs early next week.
[2022-09-25] MEDS: hydrOXYzine pamoate 25 MG CAP PO SCH (13:18)
[2022-09-25] MEDS: OLANZapine 10 MG TAB PO SCH (20:14)
[2022-09-25] MEDS: traZODone HCL 100 MG TAB PO SCH (20:14)
[2022-09-26 06:54] VITALS: BP 113/72; PULSE 58; RESP 17; TEMP 98
[2022-09-26] MEDS: hydrOXYzine pamoate 25 MG CAP PO SCH ×2 (09:18→13:05)
[2022-09-26] MEDS: SERTRALINE 100 MG TAB PO SCH (09:19)
[2022-09-26] MEDS: LITHIUM CARBONATE ER 450 MG TABLET.ER PO SCH (09:19)
--- NOTE | 2022-09-26 14:20 | P.PN ---
Progress Note - Text Progress Note Date: 09/26/22 Interval History: Patient was seen in the morning in the lounge sitting with his parents director social and [facility] liaisons. We had a family meeting to discuss patient's progress, as treatment. Patient appeared to be more engaged today and emotional with his parents. We spoke about several options that patient can have through the [facility] and also through [facility] and different services. Patient was seen later on with conventional underwriter in the office. He appears to be more engaged today in conversation. States that he is doing a bit better with his medications. Claims his anxiety has been decreasing. He states that he was able to sleep better last night and did not need extra medications. He claims that he has mainly been keeping to himself and has gone to some groups. We spoke about the lithium level being drawn tomorrow and hopeful plan for possibly Thursday if patient does well over the weekend. Patient denies any auditory, visual hallucinations and denies any paranoia or delusions. Patient denies any side effects from the medications and has been compliant with meds. Mental Status Exam: General Appearance: Patient appears to be short in stature, not tearful today, stated age is alert, attempts to cooperate. Patient appears to have fair hygiene and grooming. Has several tattoos on his arms Behavior: Patient is seated without any agitated behavior. Improving eye contact, improving Speech: Patient's speech is fluent.[place] improving mildly Mood/Affect: Patient reports their mood is improving mildly, affect is congruent, improving Suicidality/Homicidality: Patient denies having any homicidal ideation intent or plan. Denies any suicidal ideations intent or plan Perceptions: Patient denies any visual hallucinations and denies any auditory hallucinations Though content/process: [place], No delusions. More goal oriented today. Memory and concentration: AOX3, improving concentration Judgment and insight: poor/impulsive, improving mildly IMPRESSIONS: Major depressive disorder, severe, recurrent PTSD Cannabis use disorder PLAN: -Patient is admitted under voluntary status to [facility] for stabilization of psychiatric symptoms and safety. Patient has signed adult voluntary form and medication consent and is placed in patient's chart. -Medications : continue Zoloft 200 mg daily for mood/anxiety, zyprexa 20 mg qhs for insomnia/psychosis/mood stabilization. lithobid 450 mg daily for suicidal thoughts/ mood stabilization. trazodone 100 mg qhs for insomnia/mood, vistaril 25 mg at 0900 and 1300 for anxiety. -check lithium level tomorrow morning. -zyprexa and ativan PRN for agitation/aggression -NRT - not needed as patient does not smoke -SW on board for discharge planning. Encourage patient to participate in groups to work on coping skills. he is gradually improving psychiatrically however will continues to remain high risk for self harm chronically. family meeting com pleted today and patient will have [facility] services through [facility] and poss d/c tomorrow vs early next week. [facility] intake on the unit thursday morning.
[2022-09-26] MEDS: LORazepam 1 MG TAB PO PRN (20:23)
[2022-09-26] MEDS: traZODone HCL 100 MG TAB PO SCH (20:23)
[2022-09-26] MEDS: hydrOXYzine pamoate 25 MG CAP PO PRN (20:23)
[2022-09-26] MEDS: OLANZapine 10 MG TAB PO SCH (20:23)
[2022-09-27] MEDS: SERTRALINE 100 MG TAB PO SCH (09:10)
[2022-09-27] MEDS: LITHIUM CARBONATE ER 450 MG TABLET.ER PO SCH (09:11)
[2022-09-27] MEDS: hydrOXYzine pamoate 25 MG CAP PO SCH ×2 (09:11→14:58)
--- NOTE | 2022-09-27 16:33 | P.PN ---
Progress Note - Text Interval history: Patient was seen [wandering the hallways] and was directable and agreeable to speak with writer editor. 's states that he feels "a bit irritable" but overall is doing "very well" states that visits from his family have helped him feel better At this time patient denies any suicidal or homicidal ideations intent or plan. Denies any Auditory or visual hallucinations. Patient denies any side effects from the medications and has been compliant with meds. Mental status exam: General Appearance: [Patient appears to be stated age is alert, directable, and cooperative.] Behavior: [No agitated behavior. Patient is calm and directable] Speech: Patient's speech is fluent and nonpressured. There are pauses after questions are asked Mood/Affect: Mood is improving mildly, affect is congruent and constricted. Suicidality/Homicidality: Patient denies having any suicidal or homicidal ideation intent or plan. Perceptions: Patient denies any auditory or visual hallucinations. Though content/process: [There is no evidence of any delusional thought content and thought process is linear and goal-directed.] Memory and concentration: AOX3, grossly intact for the purposes of this session Judgment and insight: improving mildly Assessment/Plan: Continue with current diagnosis. Patient continues to meet criteria for inpatient psychiatric admission for symptom stabilization and safety.[Patient will be maintained on current psychotropic medication regimen.] Monitor for medication compliance and for any psychotropic medication side effects. Will continue to monitor ongoing response to treatment. Encouraged participation in milieu.
[2022-09-27] MEDS: traZODone HCL 100 MG TAB PO SCH (21:04)
[2022-09-27] MEDS: LORazepam 1 MG TAB PO PRN (21:04)
[2022-09-27] MEDS: OLANZapine 10 MG TAB PO SCH (21:04)
[2022-09-28] MEDS: SERTRALINE 100 MG TAB PO SCH (08:36)
[2022-09-28] MEDS: hydrOXYzine pamoate 25 MG CAP PO SCH ×2 (08:36→12:50)
[2022-09-28] MEDS: LITHIUM CARBONATE ER 450 MG TABLET.ER PO SCH (08:37)
[2022-09-28] MEDS: OLANZapine 10 MG TAB PO SCH (20:43)
[2022-09-28] MEDS: traZODone HCL 100 MG TAB PO SCH (20:43)
[2022-09-29] MEDS: hydrOXYzine pamoate 25 MG CAP PO SCH (10:01)
[2022-09-29] MEDS: SERTRALINE 100 MG TAB PO SCH (10:02)
[2022-09-29] MEDS: LITHIUM CARBONATE ER 450 MG TABLET.ER PO SCH (10:02)
[2022-09-29 10:13] VITALS: BMI 25.5
--- NOTE | 2022-09-29 10:44 | P.DS ---
Providers Date of admission: 09/14/22 14:28 Expected date of discharge: 09/29/22 Attending physician: Jonny Sánchez MD Consults: 09/14/22 14:33 Consult Physician Routine Consulting Provider: [facility] Consult Reason/Comments: medical management Do you want consulting provider notified?: Yes Primary care physician: [facility] Clinic - Discharge Diagnosis(es) (1) Major depressive disorder, recurrent severe without psychotic features Current Visit: Yes Status: Acute Priority: High (2) PTSD (post-traumatic stress disorder) Current Visit: Yes Status: Acute Priority: High (3) Cannabis use disorder Current Visit: Yes Status: Acute Priority: Medium Hospital Course: Admission HPI: Admission note was completed by development writer "Patient is a 27-year-old male, currently lives with his parents in a house, 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 Patient presented to the hospital yesterday by his father. 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 Patient apparently has a history of PTSD and also as reported by father according the ER report that he has been having more odd faith beliefs and statements and attempted suicide at home, cutting himself several times. Patient apparently was found on the floor with his hands tied and a knife in his hands as well. He had several cuts on his arms and legs. His urine drug screen was positive for THC. Patient was admitted and signed voluntary. He was seen today and agreeable to teletypewriter operator in the office. Patient appeared to have very poor eye contact and appeared to be depressed and upset. He was tearful at times. He states that he did attempt suicide at home by cutting himself. He claims that he was feeling "very confused". He had a difficult time verbalizing his stressors however did state that he has been feeling depression also admitted to anxiety. He claims that he has been sleeping fairly and using marijuana to cope. He gave fairly vague answers at times. He states that he did have multiple attempts at suicide and was tearful in describing what he did tell himself. He states that "I must of been feeling bad about something". He did not relate any delusions or paranoia at this time. States that his sleep is then on and off, appetite as been fair. He had significant thought blocking during the interview and appeared to be irritable at times and had poor concentration. 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 He is denying any flashbacks and denying any nightmares. patient denies any current suicidal or homicidal ideations intent or plan. At this time patient denies any auditory or visual hallucinations. Patient denies any flight of ideas racing thoughts and increased in goal directed behavior. Patient admits to using marijuana frequently, about one joint a day. Denies any other recreational drug use." Hospital course: Upon admission to the unit patient was directable and agreeable to commence treatment and signed adult voluntary form. Patient got along well with other patients on the unit and followed unit protocol. Patient was compliant with the medications and denied any side effects throughout hospital course. Patient was started on Zoloft and increased her dose of 200 mg daily for mood/anxiety, Zyprexa 20 mg daily at bedtime for insomnia/psychosis/mood, Lithobid 450 mg daily for suicidal thoughts/mood stabilization, trazodone 150 mg daily at bedtime for insomnia/mood, Vistaril 25 mg at 9 AM and 1 PM for anxiety. Patient spoke of his stressors and engaged in therapy both group and individual. Patient did have an incident where he became agitated and was demanding to leave and was checking the doors and was unable to be redirected and required seclusion and restraints along with prn medication. Patient was also seen by medical team for history and physical exam. Patient had a lithium level drawn the morning of 09/27 which was 0.4. Throughout the course of the hospitalization patient gradually improved with regards to mood, anxiety, suicidal thoughts, aggression/agitation, sleep and returned back to their baseline level of functioning. On the day of discharge patient denied any suicidal or homicidal ideations intent or plan denied any auditory or visual hallucinations. Patient endorsed wanting to live for his health, future and family. The patient denied any access to guns or weapons. Patient denied any paranoia and did not endorse any delusions. Patient does have a significant history of substance abuse and was counseled on abstaining from all substances including alcohol and marijuana. Patient was offered however declined inpatient substance-abuse rehab. Patient was also counseled on the medications and need for regular compliance and was encouraged to follow-up with their outpatient appointment for mental health and also for primary care. Prior to discharge a family meeting took place between [facility] liaisons, director of social services and psychiatrist along with patient's family to discuss patient's care, treatment and discharge planning. Patient's father ensured that the guns and weapons were locked away in the house and patient will not have access to it and they will keep a closer eye on him. They did claim that they will be more supportive with his current situation and will be transitioning to [facility] services. Mental status exam: General Appearance: Patient appears to be short in stature, several tattoos, stated age is alert, pleasant, and cooperative. Patient is in no acute distress and has improved hygiene and grooming Behavior: Patient is calmly seated without any agitated behavior. Speech: Patient's speech is fluent and nonpressured. Mood/Affect: Patient reports their mood is "good", affect is congruent Suicidality/Homicidality: Patient denies having any suicidal or homicidal ideation intent or plan. Perceptions: Patient denies any auditory or visual hallucinations. Though content/process: There is no evidence of any delusional thought content and thought process is linear and goal-directed. more future oriented Memory and concentration: AOX3, grossly intact for the purposes of this session. Can spell "WORLD" backwards correctly. Judgment and insight: chronically impulsive, however has improved with guarded prognosis Impression: Major depressive disorder, without psychotic features Cannabis use disorder PTSD Plan: -Continue with discharge today as patient has improved and stabilized psychiatrically and is not currently an imminent threat to himself and/or others. Patient will remain at chronically elevated risk for harm to self and/or others due to his impulsivity history of severe mental illness and substance abuse. -Continue medications: Zoloft 200 mg daily for mood/anxiety, Zyprexa 20 mg daily at bedtime for insomnia/psychosis/mood stabilization, Lithobid 450 mg daily for suicidal thoughts/mood stabilization, trazodone 150 mg 2 at bedtime for insomnia/mood, Vistaril 25 mg at 9 AM and 1 PM for anxiety. -Patient was counseled on the need for medication compliance and appropriate follow-up at mental health and also primary care for medical issues. Patient verbalized understanding and agreed. -Social work to help coordinate patient's discharge today with [facility] services along with [facility] services and follow-up. Social work also to arrange for patients follow up appointments for psychiatric care along with follow up with primary care provider. -Patient counseled on abstaining from recreational drugs and marijuana and alcohol. Was informed/educated on the adverse effects on their physical and mental health. Patient verbally agreed and understood. -Patient was instructed to return to the hospital or seek immediate medical care if their psychiatric or medical symptoms do worsen or reoccur. Allergies Allergy/AdvReac Type Severity Reaction Status Date / Time No Known Allergies Allergy Verified 09/14/22 12:35 Laboratory Results WBC 12.7 k/uL (3.8-10.6) H 09/14/22 16:41 RBC 4.93 m/uL (4.30-5.90) 09/14/22 16:41 Hgb 15.5 gm/dL (13.0-17.5) 09/14/22 16:41 Hct 43.2 % (39.0-53.0) 09/14/22 16:41 MCV 87.7 fL (80.0-100.0) 09/14/22 16:41 MCH 31.4 pg (25.0-35.0) 09/14/22 16:41 MCHC 35.9 g/dL (31.0-37.0) 09/14/22 16:41 RDW 12.2 % (11.5-15.5) 09/14/22 16:41 Plt Count 292 k/uL (150-450) 09/14/22 16:41 MPV 8.6 09/14/22 16:41 Neutrophils % 79 % 09/14/22 16:41 Lymphocytes % 15 % 09/14/22 16:41 Monocytes % 5 % 09/14/22 16:41 Eosinophils % 0 % 09/14/22 16:41 Basophils % 0 % 09/14/22 16:41 Neutrophils # 10.0 k/uL (1.3-7.7) H 09/14/22 16:41 Lymphocytes # 1.8 k/uL (1.0-4.8) 09/14/22 16:41 Monocytes # 0.7 k/uL (0-1.0) 09/14/22 16:41 Eosinophils # 0.0 k/uL (0-0.7) 09/14/22 16:41 Basophils # 0.0 k/uL (0-0.2) 09/14/22 16:41 Sodium 138 mmol/L (137-145) 09/14/22 16:41 Potassium 4.7 mmol/L (3.5-5.1) 09/14/22 16:41 Chloride 99 mmol/L (98-107) 09/14/22 16:41 Carbon Dioxide 28 mmol/L (22-30) 09/14/22 16:41 Anion Gap 11 mmol/L 09/14/22 16:41 BUN 13 mg/dL (9-20) 09/14/22 16:41 Creatinine 0.70 mg/dL (0.66-1.25) 09/14/22 16:41 Est GFR (CKD-EPI)AfAm >90 (>60 ml/min/1.73 sqM) 09/14/22 16:41 Est GFR (CKD-EPI)NonAf >90 (>60 ml/min/1.73 sqM) 09/14/22 16:41 Glucose 97 mg/dL (74-99) 09/14/22 16:[address] Glu mg/dL 107 09/14/22 16:41 Hemoglobin A1c 5.4 % (0.0-6.0) 09/14/22 16:41 Calcium 10.2 mg/dL (8.4-10.2) 09/14/22 16:41 Total Bilirubin 1.1 mg/dL (0.2-1.3) 09/14/22 16:41 AST 34 U/L (17-59) 09/14/22 16:41 ALT 24 U/L (4-49) 09/14/22 16:41 Alkaline Phosphatase 51 U/L (38-126) 09/14/22 16:41 Total Protein 7.6 g/dL (6.3-8.2) 09/14/22 16:41 Albumin 4.9 g/dL (3.5-5.0) 09/14/22 16:41 Triglycerides 50.50 mg/dL (0.00-149.00) 09/15/22 10:55 Cholesterol 156.00 mg/dL (0.00-200.00) 09/15/22 10:55 LDL Cholesterol, Calc 97.8 mg/dL (0.0-131.0) 09/15/22 10:55 VLDL Cholesterol, Calc 10.10 mg/dL (5.00-40.00) 09/15/22 10:55 HDL Cholesterol 48.10 mg/dL (40.00-60.00) 09/15/22 10:55 Cholesterol/HDL Ratio 3.24 Ratio 09/15/22 10:55 Urine Color Yellow 09/14/22 13:44 Urine Appearance Cloudy (Clear) 09/14/22 13:44 Urine pH 6.0 (5.0-8.0) 09/14/22 13:44 Ur Specific Harper 1.013 (1.001-1.035) 09/14/22 13:44 Urine Protein Trace (Negative) H 09/14/22 13:44 Urine Glucose (UA) Negative (Negative) 09/14/22 13:44 Urine Ketones 1+ (Negative) H 09/14/22 13:44 Urine Blood Negative (Negative) 09/14/22 13:44 Urine Nitrite Negative (Negative) 09/14/22 13:44 Urine Bilirubin Negative (Negative) 09/14/22 13:44 Urine Urobilinogen <2.0 mg/dL (<2.0) 09/14/22 13:44 Ur Leukocyte Esterase Small (Negative) H 09/14/22 13:44 Urine RBC 1 /hpf (0-5) 09/14/22 13:44 Urine WBC 19 /hpf (0-5) H 09/14/22 13:44 Urine Bacteria Rare /hpf (None) H 09/14/22 13:44 Hyaline Casts 1 /lpf (0-2) 09/14/22 13:44 Urine Mucus Rare /hpf (None) H 09/14/22 13:44 Urine Opiates Screen Not Detected (NotDetected) 09/14/22 13:44 Ur Oxycodone Screen Not Detected (NotDetected) 09/14/22 13:44 Urine Methadone Screen Not Detected (NotDetected) 09/14/22 13:44 Ur Propoxyphene Screen Not Detected (NotDetected) 09/14/22 13:44 Ur Barbiturates Screen Not Detected (NotDetected) 09/14/22 13:44 U Tricyclic Antidepress Not Detected (NotDetected) 09/14/22 13:44 Ur Phencyclidine Scrn Not Detected (NotDetected) 09/14/22 13:44 Ur Amphetamines Screen Not Detected (NotDetected) 09/14/22 13:44 U Methamphetamines Scrn Not Detected (NotDetected) 09/14/22 13:44 U Benzodiazepines Scrn Not Detected (NotDetected) 09/14/22 13:44 [place] 0.4 mmol/L 09/27/22 07:15 Urine Cocaine Screen Not Detected (NotDetected) 09/14/22 13:44 U Marijuana (THC) Screen Detected (NotDetected) H 09/14/22 13:44 Coronavirus (PCR) Not Detected (Not Detectd) 09/14/22 13:26 Vital Signs Temp 98.0 F 09/26/22 06:53 Pulse 58 L 09/26/22 06:53 Resp 17 09/26/22 06:53 BP 113/72 09/26/22 06:53 Pulse Ox 99 09/26/22 06:53 FiO2 Intake & Output 09/28/22 09/29/22 09/29/22 18:59 06:59 18:59 Weight 67.6 kg 67.6 kg Patient Condition at Discharge: Stable Plan - Discharge Summary Discharge Rx Participant: No New Discharge Prescriptions: New hydrOXYzine pamoate [Vistaril] 25 mg PO 0900,1300 30 Days #60 cap [place] Carbonate ER [Lithobid] 450 mg PO DAILY 30 Days #30 tab traZODone HCL 150 mg PO HS 30 Days #30 tablet Acetaminophen Tab [Tylenol] 650 mg PO Q4HR PRN tab PRN Reason: Pain/Discomfort Sertraline [Zoloft] 200 mg PO DAILY 30 Days #60 tab OLANZapine [ZyPREXA] 20 mg PO HS 30 Days #60 tab Discharge Medication List Acetaminophen Tab [Tylenol] 650 mg PO Q4HR PRN tab 09/29/22 [Rx] [place] Carbonate ER [Lithobid] 450 mg PO DAILY 30 Days #30 tab 09/29/22 [Rx] OLANZapine [ZyPREXA] 20 mg PO HS 30 Days #60 tab 09/29/22 [Rx] Sertraline [Zoloft] 200 mg PO DAILY 30 Days #60 tab 09/29/22 [Rx] hydrOXYzine pamoate [Vistaril] 25 mg PO 0900,1300 30 Days #60 cap 09/29/22 [Rx] traZODone HCL 150 mg PO HS 30 Days #30 tablet 09/29/22 [Rx] Follow up Appointment(s)/Referral(s): [facility] [Outside] - 10/01/22 9:00 am (with intake) [facility]inic [Primary Care Provider] - 1-2 days Activity/Diet/Wound Care/Special Instructions: Avoid the use of street drugs and alcohol. Take all medications as prescribed. When you are in need of refills on your medications, please contact your medical provider and/or outpatient psychiatrist to have this done. Please go to scheduled outpatient appointments for aftercare treatment. If symptoms return or become worse, call the crisis line at and/or go to the nearest emergency room for evaluation. Discharge Disposition: HOME SELF-CARE
--- NOTE | 2022-09-29 15:13 | P.PN ---
Progress Note - Text Progress Note Date: 09/28/22 Interval history: Patient was seen [wandering the hallways] and was directable and agreeable to speak with personal lines underwriter. States that he is a "bit tired" At this time patient denies any suicidal or homicidal ideations intent or plan. Denies any Auditory or visual hallucinations. Patient denies any side effects from the medications and has been compliant with meds. Mental status exam: General Appearance: [Patient appears to be stated age is alert, directable, and cooperative.] Behavior: [No agitated behavior. Patient is calm and directable] Speech: Patient's speech is fluent and nonpressured. There are pauses after questions are asked Mood/Affect: Mood is "bit tired" , affect is congruent and constricted. Suicidality/Homicidality: Patient denies having any suicidal or homicidal ideation intent or plan. Perceptions: Patient denies any auditory or visual hallucinations. Though content/process: [There is no evidence of any delusional thought content and thought process is linear and goal-directed.] Memory and concentration: AOX3, grossly intact for the purposes of this session Judgment and insight: improving mildly Assessment/Plan: Continue with current diagnosis. Patient continues to meet criteria for inpatient psychiatric admission for symptom stabilization and safety.[Patient will be maintained on current psychotropic medication regimen.] Monitor for medication compliance and for any psychotropic medication side effects. Will continue to monitor ongoing response to treatment. Encouraged participation in milieu.
== END 2022-09-29 13:35 | disposition home or self-care (01) | DRG 751 ==
LOC: EC 08:08 → 3MHU 14:28
PROVIDERS: ADMIT Psychiatry & Neurology Psychiatry; ATTEND Psychiatry & Neurology Psychiatry
DX: F33.2 Major depressive disorder, recurrent severe without psychotic features (principal); F12.90 Cannabis use, unspecified, uncomplicated; F43.10 Post-traumatic stress disorder, unspecified; F63.81 Intermittent explosive disorder; G47.00 Insomnia, unspecified; R45.851 Suicidal ideations; S61.519A Laceration without foreign body of unspecified wrist, initial encounter; Z79.899 Other long term (current) drug therapy; Z87.891 Personal history of nicotine dependence; Z91.51 Personal history of suicidal behavior; Z20.822 Contact with and (suspected) exposure to COVID-19
CPT/HCPCS: 80053; 80061; 80178; 80306; 81001; 82075; 83036; 85025; 87086; 87635; 99285

== ENCOUNTER 2022-10-23 14:41 | Emergency (ER) | payer OTHER ==
[2022-10-23 14:57] VITALS: TEMP 98.2
[2022-10-23 16:35] LABS: African American GFR (CKD) >90 (>60 ml/min/1.73 sqM); Anion Gap 10 mmol/L; Blood Urea Nitrogen 14 mg/dL (9-20); Calcium 10.2 mg/dL (8.4-10.2); Carbon Dioxide 29 mmol/L (22-30); Chloride 99 mmol/L (98-107); Glucose 84 mg/dL (74-99); Lithium 0.2 mmol/L; Non-African American GFR(CKD) >90 (>60 ml/min/1.73 sqM); Potassium 4.9 mmol/L (3.5-5.1); Sodium 138 mmol/L (137-145)
[2022-10-23 17:00] LABS: Amphetamine Screen,Urine Not Detected (NotDetected); Barbiturate Screen,Urine Not Detected (NotDetected); Benzodiazepines Screen,Urine Not Detected (NotDetected); Cocaine Screen,Urine Not Detected (NotDetected); Methadone Screen, Urine Not Detected (NotDetected); Opiate Screen,Urine Not Detected (NotDetected); Oxycodone Screen, Urine Not Detected (NotDetected); Phencyclidine Screen,Urine Not Detected (NotDetected); Tricyclic Antidepressant,Urine Not Detected (NotDetected); Urn Cannabinoid Scrn Detected (NotDetected)
--- NOTE | 2022-10-23 18:32 | ED ---
General Adult HPI - General Chief complaint: Psychiatric Symptoms Stated complaint: mental health Time Seen by Provider: 10/23/22 15:02 Source: patient, family, RN notes reviewed Mode of arrival: ambulatory Limitations: no limitations - History of Present Illness Initial comments: . 27-year-old male with no significant past medical history presents to the emergency department with a chief complaint of medication reaction. Patient reports that he was recently evaluated at this facility for psychiatric evaluation for which she was started on for any medications. He is complaining of worsening fatigue and increased tiredness. Eyes any suicidal or homicidal ideation at this time. He denies any visual or auditory hallucinations. He de nies any recent alcohol or illicit drug use. - Related Data Home Medications Medication Instructions Recorded Confirmed hydrOXYzine pamoate [Vistaril] 25 mg PO BID@0900,1300 10/23/22 10/23/22 Previous Rx's Medication Instructions Recorded Acetaminophen Tab [Tylenol] 650 mg PO Q4HR PRN tab 09/29/22 [place] Carbonate ER [Lithobid] 450 mg PO DAILY 30 Days #30 tab 09/29/22 OLANZapine [ZyPREXA] 20 mg PO HS 30 Days #60 tab 09/29/22 Sertraline [Zoloft] 200 mg PO DAILY 30 Days #60 tab 09/29/22 traZODone HCL 150 mg PO HS 30 Days #30 tablet 09/29/22 Allergies Allergy/AdvReac Type Severity Reaction Status Date / Time No Known Allergies Allergy Verified 10/23/22 14:57 Review of Systems ROS Statement: Those systems with pertinent positive or pertinent negative responses have been documented in the HPI. ROS Other: All systems not noted in ROS Statement are negative. Past Medical History Past Medical History: No Reported History History of Any Multi-Drug Resistant Organisms: None Reported Past Surgical History: Adenoidectomy, Tonsillectomy Additional Past Surgical History / Comment(s): shoulder surgery Past Psychological History: Depression, PTSD Smoking Status: Former smoker Past Alcohol Use History: None Reported Past Drug Use History: None Reported General Exam Limitations: no limitations General appearance: alert, in no apparent distress Head exam: Present: atraumatic, normocephalic, normal inspection Eye exam: Present: normal appearance, PERRL, EOMI. Absent: scleral icterus, conjunctival injection, periorbital swelling ENT exam: Present: normal exam, mucous membranes moist Neck exam: Present: normal inspection. Absent: tenderness, meningismus, lymphadenopathy Respiratory exam: Present: normal lung sounds bilaterally. Absent: respiratory distress, wheezes, rales, rhonchi, stridor Cardiovascular Exam: Present: regular rate, normal rhythm, normal heart sounds. Absent: systolic murmur, diastolic murmur, rubs, gallop, clicks GI/Abdominal exam: Present: soft, normal bowel sounds. Absent: distended, tenderness, guarding, rebound, rigid Extremities exam: Present: normal inspection, full ROM, normal capillary refill. Absent: tenderness, pedal edema, joint swelling, calf tenderness Left Hand L/R Back: Back exam: Present: normal inspection Neurological exam: Present: alert, oriented X3, CN II-XII intact Psychiatric exam: Present: normal affect, normal mood Skin exam: Present: warm, dry, intact, normal color. Absent: rash Course Vital Signs 10/23/22 10/23/22 10/23/22 14:49 17:04 18:51 Temperature 98.2 F Pulse Rate 61 52 L 62 Respiratory 18 20 16 Rate Blood Pressure 149/90 145/81 143/98 O2 Sat by Pulse 98 98 96 Oximetry Procedures - Laceration Laceration #1 Indication: laceration Site: other (L thumb) Depth: simple, single layer Anesthetic Used: lidocaine 1% Anesthesia Technique: local infiltration, nerve block Pre-repair: wound explored, irrigated extensively Type of Sutures: vicryl Size of Sutures: 5-0 Number of Sutures: 2 Technique: simple, interrupted Complications: pain, bleeding, nerve injury, allergic reaction Patient Tolerated Procedure: well, no complications Medical Decision Making - Medical Decision Making Was pt. sent in by a medical professional or institution (PAT Duarte, REVENUE DIRECTOR, urgent care, hospital, or [place] [facility] facility...) When possible be specific @ -[No] Did you speak to anyone other than the patient for history (EMS, parent, family, police, friend...)? What history was obtained from this source @ -[No] Did you review nursing and triage notes (agree or disagree)? Why? @ -[I reviewed and agree with nursing and triage notes] Were old charts reviewed (outside hosp., previous admission, EMS record, old EKG, old radiological studies, urgent care reports/EKG's, [place] [facility] facility records)? Report findings @ -[No old charts were reviewed] Differential Diagnosis (chest pain, altered mental status, abdominal pain women, abdominal pain men, vaginal bleeding, weakness, fever, dyspnea, syncope, headache, dizziness, GI bleed, back pain, seizure, CVA, palpatations, mental health, musculoskeletal)? @ -[not applicable] EKG interpreted by me (3pts min.). @ -[As above] X-rays interpreted by me (1pt min.). @ -[None done] CT interpreted by me (1pt min.). @ -[None done] U/S interpreted by me (1pt. min.). @ -[None done] What testing was considered but not performed or refused? (CT, X-rays, U/S, labs)? Why? @ -[None] What meds were considered but not given or refused? Why? @ -[None] Did you discuss the management of the patient with other professionals (professionals i.e. , PA, REVENUE DIRECTOR, lab, RT, psych nurse, director of social services, special education curriculum specialist, teacher, compliance review officer, case checker)? Give summary @ -[No] Was smoking cessation discussed for >3mins.? @ -[No] Was critical care preformed (if so, how long)? @ -[No] Were there social determinants of health that impacted care today? How? (Homelessness, low income, unemployed, alcoholism, drug addiction, transportation, low edu. Level, literacy, decrease access to med. care, correction, rehab)? @ -[No] Was there de-escalation of care discussed even if they declined (Discuss DNR or withdrawal of care, Hospice)? DNR status @ -[No] What co-morbidities impacted this encounter? (DM, HTN, Smoking, COPD, CAD, Cancer, CVA, ARF, Chemo, Hep., AIDS, mental health diagnosis, sleep apnea, morbid obesity)? @ -[None] Was patient admitted / discharged? Hospital course, mention meds given and route, prescriptions, significant lab abnormalities, going to OR and other pertinent info. @ -Discharged. This is a 27-year-old male who presents to the emergency department with medication reaction patient had a thorough history and physical exam performed while in the ED. Physical exam is essentially unremarkable heart rate regular rate and rhythm lungs clear to auscultation bilaterally, abdomen soft nontender. Patient was seen and evaluated by EPS to does not believe the patient meets inpatient criteria. Patient to be discharge at this time. Return precautions were discussed. Patient discharged in stable condition. Case discussed with Regis Pace who agrees with plan of care Undiagnosed new problem with uncertain prognosis? @ -[No] Drug Therapy requiring intensive monitoring for toxicity (Heparin, Nitro, Insulin, Cardizem)? @ -[No] Were any procedures done? @ -[No] Diagnosis/symptom? @ -medication rxn Acute, or Chronic, or Acute on Chronic? @ -acute Uncomplicated (without systemic symptoms) or Complicated (systemic symptoms)? @ -uncomplicated Side effects of treatment? @ -[No] Exacerbation, Progression, or Severe Exacerbation? @ -[No] Poses a threat to life or bodily function? How? (Chest pain, [place], [place], pneumonia, PE, COPD, DKA, ARF, appy, cholecystitis, CVA, Diverticulitis, Homicidal, Suicidal, threat to staff... and all critical care pts) @ -low likelihood - Lab Data Result diagrams: 10/23/22 15:44 Lab Results 10/23/22 10/23/22 Range/Units 15:44 15:44 Sodium 138 (137-145) mmol/L Potassium 4.9 (3.5-5.1) mmol/L Chloride 99 (98-107) mmol/L Carbon Dioxide 29 (22-30) mmol/L Anion Gap 10 mmol/L BUN 14 (9-20) mg/dL Creatinine 0.64 L (0.66-1.25) mg/dL Est GFR (CKD-EPI)AfAm >90 (>60 ml/min/1.73 sqM) Est GFR (CKD-EPI)NonAf >90 (>60 ml/min/1.73 sqM) Glucose 84 (74-99) mg/dL Calcium 10.2 (8.4-10.2) mg/dL Urine Opiates Screen Not Detected (NotDetected) Ur Oxycodone Screen Not Detected (NotDetected) Urine Methadone Screen Not Detected (NotDetected) Ur Propoxyphene Screen Not Detected (NotDetected) Ur Barbiturates Screen Not Detected (NotDetected) U Tricyclic Antidepress Not Detected (NotDetected) Ur Phencyclidine Scrn Not Detected (NotDetected) Ur Amphetamines Screen Not Detected (NotDetected) U Methamphetamines Scrn Not Detected (NotDetected) U Benzodiazepines Scrn Not Detected (NotDetected) [place] 0.2 mmol/L Urine Cocaine Screen Not Detected (NotDetected) U Marijuana (THC) Screen Detected H (NotDetected) Disposition Clinical Impression: Medication reaction Disposition: HOME SELF-CARE Condition: Stable Additional Instructions: These return to the nearest emergency department if symptoms worsen or persist Is patient prescribed a controlled substance at d/c from ED?: No Referrals: [facility],Clinic [Primary Care Provider] - 1-2 days Time of Disposition: 18:43
[2022-10-23 19:00] VITALS: BP 143/98; PULSE 62; RESP 16
== END 2022-10-23 19:00 | disposition home or self-care (01) ==
LOC: EC 14:41
DX: R45.850 Homicidal ideations (principal); T50.905A Adverse effect of unspecified drugs, medicaments and biological substances, initial encounter; F32.A Depression, unspecified; Z87.891 Personal history of nicotine dependence
CPT/HCPCS: 12001; 36415; 80048; 80178; 80306; 82075; 99284

== ENCOUNTER 2022-10-26 19:47 | Emergency (ER) | payer OTHER ==
[2022-10-26] MEDS ORDERED: LITHIUM CARBONATE 150 MG CAP PO STA (21:58)
--- NOTE | 2022-10-26 22:53 | ED ---
Psych HPI - General Chief Complaint: Psychiatric Symptoms Stated Complaint: mental health Time Seen by Provider: 10/26/22 21:01 Source: patient Mode of arrival: ambulatory - History of Present Illness Initial Comments: Patient is a 27 year old male who presents to the emergency department for psych evaluation. Patient is hyperfixating on congregation thinking he is a god. He has been hearing voices. Patient was admitted for pyschosis last month. He presented in our emergency department on 10/24 for syncope which was thought to be related to multiple sedating medications. Patient has not had any further syncopal episodes but has had increased delusions and hallucinations. He admits to suicidal ideation without plan or intention. He denies homicidal ideation. Admits to marijuana use otherwise denies illicit drug use. No alcohol use. Patient has no other concerns at this time including fever, chills, headache, shortness of breath, cough, chest pain, abdominal pain, nausea, vomiting, diarrhea, and burning with urination. - Related Data Home Medications Medication Instructions Recorded Confirmed OLANZapine [ZyPREXA] 10 mg PO HS 10/26/22 10/26/22 Previous Rx's Medication Instructions Recorded [place] Carbonate ER [Lithobid] 450 mg PO DAILY 30 Days #30 tab 09/29/22 Sertraline [Zoloft] 200 mg PO DAILY 30 Days #60 tab 09/29/22 Allergies Allergy/AdvReac Type Severity Reaction Status Date / Time No Known Allergies Allergy Verified 10/26/22 21:40 Review of Systems ROS Statement: Those systems with pertinent positive or pertinent negative responses have been documented in the HPI. ROS Other: All systems not noted in ROS Statement are negative. Past Medical History Past Medical History: No Reported History History of Any Multi-Drug Resistant Organisms: None Reported Past Surgical History: Adenoidectomy, Tonsillectomy Additional Past Surgical History / Comment(s): shoulder surgery Past Psychological History: Bipolar, Depression, PTSD, Schizophrenia Smoking Status: Former smoker Past Alcohol Use History: None Reported Past Drug Use History: None Reported General Exam Limitations: no limitations General appearance: alert, in no apparent distress Head exam: Present: atraumatic, normocephalic, normal inspection Eye exam: Present: normal appearance, PERRL, EOMI. Absent: scleral icterus, conjunctival injection, periorbital swelling Respiratory exam: Present: normal lung sounds bilaterally. Absent: respiratory distress, wheezes, rales, rhonchi, stridor Cardiovascular Exam: Present: regular rate, normal rhythm, normal heart sounds. Absent: systolic murmur, diastolic murmur, rubs, gallop, clicks GI/Abdominal exam: Present: soft, normal bowel sounds. Absent: distended, tenderness, guarding, rebound, rigid Neurological exam: Present: alert, oriented X3, CN II-XII intact Psychiatric exam: Present: normal affect, normal mood, suicidal ideation Skin exam: Present: warm, dry, intact, normal color. Absent: rash Course Vital Signs 10/26/22 10/27/22 20:38 00:43 Temperature 98.6 F Pulse Rate 60 59 L Respiratory 16 16 Rate Blood Pressure 145/94 135/69 O2 Sat by Pulse 98 100 Oximetry Medical Decision Making - Medical Decision Making EKG taken at 23:48, interpreted by me Sinus rhythm Ventricular rate 63, MD interval 154, QRS duration 92, QTC 389 Was pt. sent in by a medical professional or institution (, PA, MANAGEMENT TECHNICIAN, urgent ca re, hospital, or skilled nursing...) When possible be specific @ -[No] Did you speak to anyone other than the patient for history (EMS, parent, family, police, friend...)? What history was obtained from this source @ -Yes, family who helped provide history Did you review nursing and triage notes (agree or disagree)? Why? @ -[I reviewed and agree with nursing and triage notes] Were old charts reviewed (outside hosp., previous admission, EMS record, old EKG, old radiological studies, urgent care reports/EKG's, skilled nursing records)? Report findings @ -[No old charts were reviewed] Differential Diagnosis (chest pain, altered mental status, abdominal pain women, abdominal pain men, vaginal bleeding, weakness, fever, dyspnea, syncope, headache, dizziness, GI bleed, back pain, seizure, CVA, palpatations, mental health)? @ -Differential Mental Health Depression, anxiety, bipolar, psychosis, schizophrenia, borderline personality, situational depression, adjustment disorder, behavioral disorder, brain tumor, malingering, substance abuse, encephalopathy, medication reaction, dementia, hypothyroidism, degenerative neurologic disorder, lupus.... This is not meant to be all-inclusive list EKG interpreted by me (3pts min.). @ -[As above] X-rays interpreted by me (1pt min.). @ -[None done] CT interpreted by me (1pt min.). @ -[None done] U/S interpreted by me (1pt. min.). @ -[None done] What testing was considered but not performed or refused? (CT, X-rays, U/S, labs)? Why? @ -[None] What meds were considered but not given or refused? Why? @ -[None] Did you discuss the management of the patient with other professionals (professionals i.e. , PA, MANAGEMENT TECHNICIAN, lab, RT, psych nurse, social media content specialist, cushion builder, teacher, fire officer, pillowcase cutter)? Give summary @ -[No] Was smoking cessation discussed for >3mins.? @ -[No] Was critical care preformed (if so, how long)? @ -[No] Were there social determinants of health that impacted care today? How? (Homelessness, low income, unemployed, alcoholism, drug addiction, transportation, low edu. Level, literacy, decrease access to med. care, skilled nursing, rehab)? @ -[No] Was there de-escalation of care discussed even if they declined (Discuss DNR or withdrawal of care, Hospice)? DNR status @ -[No] What co-morbidities impacted this encounter? (DM, HTN, Smoking, COPD, CAD, Cancer, CVA, ARF, Chemo, Hep., AIDS, mental health diagnosis, sleep apnea, m orbid obesity)? @ -[None] Was patient admitted / discharged? Hospital course, mention meds given and route, prescriptions, significant lab abnormalities, going to OR and other pertinent info. @ -Patient presenting for psychiatric evaluation. Further testing with laboratory studies and imaging not indicated at this time. Patient is cleared medically for EPS evaluation. Patient evaluated by EPS [facility]. Undiagnosed new problem with uncertain prognosis? @ -[No] Drug Therapy requiring intensive monitoring for toxicity (Heparin, Nitro, Insulin, Cardizem)? @ -[No] Were any procedures done? @ -[No] Diagnosis/symptom? @ -delusions, hallucinations, suicidal ideation Acute, or Chronic, or Acute on Chronic? @ -acute on chronic Uncomplicated (without systemic symptoms) or Complicated (systemic symptoms)? @ -[default] Side effects of treatment? @ -[No] Exacerbation, Progression, or Severe Exacerbation? @ -[No] Poses a threat to life or bodily function? How? (Chest pain, [place], [place], pneumonia, PE, COPD, DKA, ARF, appy, cholecystitis, CVA, Diverticulitis, Homicidal, Suicidal, threat to staff... and all critical care pts) @ -yes Dr. Carrion is my attending - Lab Data Lab Results 10/26/22 10/26/22 10/26/22 Range/Units 22:20 23:47 23:55 Urine Color Yellow Urine Appearance Clear (Clear) Urine pH 6.5 (5.0-8.0) Ur Specific [place] 1.019 (1.001-1.035) Urine Protein Negative (Negative) Urine Glucose (UA) Negative (Negative) Urine Ketones Negative (Negative) Urine Blood Negative (Negative) Urine Nitrite Negative (Negative) Urine Bilirubin Negative (Negative) Urine Urobilinogen <2.0 (<2.0) mg/dL Ur Leukocyte Esterase Negative (Negative) Urine Opiates Screen Not Detected (NotDetected) Ur Oxycodone Screen Not Detected (NotDetected) Urine Methadone Screen Not Detected (NotDetected) Ur Propoxyphene Screen Not Detected (NotDetected) Ur Barbiturates Screen Not Detected (NotDetected) U Tricyclic Antidepress Not Detected (NotDetected) Ur Phencyclidine Scrn Not Detected (NotDetected) Ur Amphetamines Screen Not Detected (NotDetected) U Methamphetamines Scrn Not Detected (NotDetected) U Benzodiazepines Scrn Not Detected (NotDetected) [place] 0.5 mmol/L Urine Cocaine Screen Not Detected (NotDetected) U Marijuana (THC) Screen Detected H (NotDetected) Coronavirus (PCR) Not Detected (Not Detectd) Disposition Clinical Impression: Delusions, Suicidal ideation Disposition: TRANSFER TO PSYCH HOSP/UNIT Condition: Good Referrals: [facility],Clinic [Primary Care Provider] - 1-2 days - Out of Hospital Transfer - Req. Specs Out of Hospital Transfer - Requested Specifics: Psychiatric Non-ICU ([place])
[2022-10-27 00:14] LABS: Appearance,Urine Clear (Clear); Bilirubin,Urine Negative (Negative); Blood,Urine Negative (Negative); Color,Urine Yellow; Glucose,Urine (UA) Negative (Negative); Ketones,Urine Negative (Negative); Leukocyte Esterase,Urine Negative (Negative); Nitrite,Urine Negative (Negative); PH, Urine 6.5 (5.0-8.0); Protein,Urine Negative (Negative); Specific Gravity,Urine 1.019 (1.001-1.035); Urobilinogen,Urine <2.0 mg/dL (<2.0)
[2022-10-27 00:48] LABS: Amphetamine Screen,Urine Not Detected (NotDetected); Barbiturate Screen,Urine Not Detected (NotDetected); Benzodiazepines Screen,Urine Not Detected (NotDetected); Cocaine Screen,Urine Not Detected (NotDetected); Methadone Screen, Urine Not Detected (NotDetected); Opiate Screen,Urine Not Detected (NotDetected); Oxycodone Screen, Urine Not Detected (NotDetected); Phencyclidine Screen,Urine Not Detected (NotDetected); Tricyclic Antidepressant,Urine Not Detected (NotDetected)
[2022-10-27 00:49] LABS: Urn Cannabinoid Scrn Detected (NotDetected)
[2022-10-27 02:06] LABS: ALT 50 U/L (4-49); AST 38 U/L (17-59); African American GFR (CKD) >90 (>60 ml/min/1.73 sqM); Albumin 5.4 g/dL (3.5-5.0); Alkaline Phosphatase 55 U/L (38-126); Anion Gap 14 mmol/L; Blood Urea Nitrogen 16 mg/dL (9-20); Calcium 10.5 mg/dL (8.4-10.2); Carbon Dioxide 26 mmol/L (22-30); Chloride 98 mmol/L (98-107); Glucose 93 mg/dL (74-99); Non-African American GFR(CKD) >90 (>60 ml/min/1.73 sqM); Sodium 138 mmol/L (137-145); Total Bilirubin 1.1 mg/dL (0.2-1.3); Total Protein 8.7 g/dL (6.3-8.2)
[2022-10-27 02:13] LABS: Basophils % (A) 0 %; Eosinophils # (A) 0.1 k/uL (0-0.7); Eosinophils % (A) 2 %; HCT 42.4 % (39.0-53.0); HGB 14.4 gm/dL (13.0-17.5); Lymphocytes % (A) 27 %; MCH 30.3 pg (25.0-35.0); MCHC 34.1 g/dL (31.0-37.0); MCV 88.9 fL (80.0-100.0); Mean Platelet Volume 9.1; Monocytes # (A) 0.4 k/uL (0-1.0); Monocytes % (A) 6 %; Neutrophils # (A) 4.6 k/uL (1.3-7.7); Neutrophils % (A) 63 %; Platelet Count 310 k/uL (150-450); RBC 4.77 m/uL (4.30-5.90); RDW 12.6 % (11.5-15.5); WBC 7.4 k/uL (3.8-10.6)
[2022-10-27 02:14] LABS: Potassium 4.8 mmol/L (3.5-5.1)
[2022-10-27 04:22] LABS: T4, Free (Free Thyroxine) 1.48 ng/dL (0.78-2.19)
[2022-10-27] MEDS ORDERED: OLANZapine 10 MG TAB PO SCH (09:00)
[2022-10-27 12:57] VITALS: BP 142/90; RESP 18; TEMP 98.2
[2022-10-27 14:10] VITALS: PULSE 62
== END 2022-10-27 14:10 ==
LOC: EC 19:47
DX: F22 Delusional disorders (principal); R45.851 Suicidal ideations; F31.9 Bipolar disorder, unspecified; Z87.891 Personal history of nicotine dependence; Z20.822 Contact with and (suspected) exposure to COVID-19
CPT/HCPCS: 36415; 80053; 80178; 80306; 81003; 84439; 84443; 85025; 87635; 93005; 99285

== ENCOUNTER 2022-11-15 21:03 | Emergency (ER) | payer OTHER ==
[2022-11-15 21:11] VITALS: TEMP 98.4
--- NOTE | 2022-11-15 21:28 | ED ---
Dizziness HPI - General Chief Complaint: Syncope Stated Complaint: Fainting Time Seen by Provider: 11/15/22 21:25 Source: patient, family, RN notes reviewed, old records reviewed Mode of arrival: wheelchair Limitations: no limitations - History of Present Illness Initial Comments: This is a 27-year-old male presents today for evaluation of syncopal event. Patient has been suffering from significant syncope for about a month now likely medication induced with severe history of PTSD. No current headache chest pain shortness of breath or abdominal pain. Significant medication changes since as of late. MD Complaint: dizziness, lightheadedness -: hour(s) Timing: sudden onset, intermittent, waxing/waning Description: near-syncope, other (Full syncopal events) History of Same: Yes History of Trauma: Yes (Posttraumatic stress disorder) Severity: severe Improves With: nothing Worsens With: nothing Associated Symptoms: denies other symptoms - Related Data Home Medications Medication Instructions Recorded Confirmed OLANZapine [ZyPREXA] 10 mg PO HS 10/26/22 10/26/22 Previous Rx's Medication Instructions Recorded [employer] Carbonate ER [Lithobid] 450 mg PO DAILY 30 Days #30 tab 09/29/22 Sertraline [Zoloft] 200 mg PO DAILY 30 Days #60 tab 09/29/22 Allergies Allergy/AdvReac Type Severity Reaction Status Date / Time No Known Allergies Allergy Verified 11/15/22 21:10 Review of Systems ROS Statement: Those systems with pertinent positive or pertinent negative responses have been documented in the HPI. ROS Other: All systems not noted in ROS Statement are negative. Past Medical History Past Medical History: No Reported History History of Any Multi-Drug Resistant Organisms: None Reported Past Surgical History: Adenoidectomy, Orthopedic Surgery, Tonsillectomy Additional Past Surgical History / Comment(s): shoulder surgery, eye surgery, Past Psychological History: Bipolar, Depression, PTSD, Schizophrenia Smoking Status: Current every day smoker Past Alcohol Use History: None Reported Past Drug Use History: Marijuana General Exam Limitations: no limitations General appearance: alert, in no apparent distress Head exam: Present: atraumatic, normocephalic, normal inspection Eye exam: Present: normal appearance, PERRL, EOMI. Absent: scleral icterus, conjunctival injection, periorbital swelling ENT exam: Present: normal exam, mucous membranes moist Neck exam: Present: normal inspection. Absent: tenderness, meningismus, lymphad enopathy Respiratory exam: Present: normal lung sounds bilaterally. Absent: respiratory distress, wheezes, rales, rhonchi, stridor Cardiovascular Exam: Present: regular rate, normal rhythm, normal heart sounds. Absent: systolic murmur, diastolic murmur, rubs, gallop, clicks GI/Abdominal exam: Present: soft, normal bowel sounds. Absent: distended, tenderness, guarding, rebound, rigid Extremities exam: Present: normal inspection, full ROM, normal capillary refill. Absent: tenderness, pedal edema, joint swelling, calf tenderness Back exam: Present: normal inspection Neurological exam: Present: alert, oriented X3, CN II-XII intact Psychiatric exam: Present: normal affect, normal mood Skin exam: Present: warm, dry, intact, normal color. Absent: rash Course Vital Signs 11/15/22 11/15/22 21:06 23:30 Temperature 98.4 F Pulse Rate 84 97 Respiratory 20 16 Rate Blood Pressure 138/70 117/78 O2 Sat by Pulse 98 Oximetry - Reevaluation(s) Reevaluation #1: 11/15/22 22:44 Medical records reviewed Reevaluation #2: 11/15/22 22:45 Patient without syncopal episode once he got to the room he did have a syncopal episode in triage Reevaluation #3: 11/15/22 22:45 Patient informed results questions answered Reevaluation #4: 11/15/22 22:45 Was pt. sent in by a medical professional or institution? @ -no Did you speak to anyone other than the patient for history? @ -Yes father is at bedside who provides history in regards to prior hospitalization and evaluation of syncope as well as inpatient psychiatric hospitalization, patient is aware of conversation although does seem distracted and not participating history of present illness Did you review nursing and triage notes? @ -agree Were old charts reviewed? @ -no Differential Diagnosis? @ -prior EKG interpreted by me (3pts min.)? @ -yes X-rays interpreted by me (1pt min.)? @ -Now CT interpreted by me (1pt min.)? @ -no U/S interpreted by me (1pt. min.)? @ -no What testing was considered but not performed? (CT, X-rays, U/S, labs)? Why? @ -no What meds were considered but not given? Why? @ -no Did you discuss the management of the patient with other professionals? @ -no Did you reconcile home meds? @ -no Was smoking cessation discussed for >3mins.? @ -no Was critical care preformed (if so, how long)? @ -no Were there social determinants of health that impacted care today? How? (Homelessness, low income, unemployed, alcoholism, drug addiction, transportation, low edu. Level, literacy, decrease access to med. care, residential, rehab)? @ -no Was there de-escalation of care discussed even if they declined? (Discuss DNR or withdrawal of care, Hospice)? @ -no What co-morbidities impacted this encounter? (DM, HTN, Smoking, COPD, CAD, Cancer, CVA, Hep., AIDS, mental health diagnosis, sleep apnea, morbid obesity)? @ -none Was patient admitted / discharged? @ -This is a 27-year-old male to the ER for evaluation. Patient presents today for evaluation of syncope with history of significant recurrent syncope also remote history of seizure patient has recently been aching without seizure syncopal event recently had a lengthy workup at the [facility]. No cause of syncope or seizure found. Patient feels well here in the ER and can be discharged home Discharged Undiagnosed new problem with uncertain prognosis? @ -no Drug Therapy requiring intensive monitoring for toxicity (Heparin, Nitro, Insulin, Cardizem)? @ -no Were any procedures done? @ -no Diagnosis/symptom? @ -Syncope, PTSD, anxiety Acute, or Chronic, or Acute on Chronic? @ -Acute Uncomplicated (without systemic symptoms) or Complicated (systemic symptoms)? @ -uncomplicated Side effects of treatment? @ -no Exacerbation, Progression, or Severe Exacerbation] @ -no Poses a threat to life or bodily function? @ -no Reevaluation #5: 11/15/22 22:45 Differential Syncope: Valvular disease, hypertrophic cardiomyopathy, pulmonary embolism, tamponade, tachycardia, bradycardia, [place], hypovolemia, hemorrhage, dissection, anemia, intracranial hemorrhage, seizure, hypoglycemia, carbon monoxide poisoning, this is not meant to be an all-inclusive list. EKG Findings - EKG Comments: EKG Findings:: EKG shows sinus 80 KS 147 QRS 91 QTC 390 - EKG Results: EKG: interpreted by CHRISTOPHER Medical Decision Making - Medical Decision Making 27 male did have who did have a syncopal event at home multiple times also had recurrent syncopal event here in the hospital, could be psychiatric related psychogenic, [facility] is that she will suffers from PTSD. No acute findings here in the ER patient feels improved and reevalua tion with no headache chest pain shortness of breath abdominal pain. Patient recent extensive workup for cause of syncope which was negative - Lab Data Result diagrams: 11/15/22 22:20 11/15/22 22:20 Lab Results 11/15/22 11/15/22 11/15/22 Range/Units 22:20 22:20 22:20 WBC 9.8 (3.8-10.6) k/uL RBC 4.18 L (4.30-5.90) m/uL Hgb 12.9 L (13.0-17.5) gm/dL Hct 38.2 L (39.0-53.0) % MCV 91.5 (80.0-100.0) fL MCH 30.8 (25.0-35.0) pg MCHC 33.6 (31.0-37.0) g/dL RDW 13.0 (11.5-15.5) % Plt Count 293 (150-450) k/uL MPV 8.1 Neutrophils % 79 % Lymphocytes % 14 % Monocytes % 5 % Eosinophils % 1 % Basophils % 0 % Neutrophils # 7.7 (1.3-7.7) k/uL Lymphocytes # 1.4 (1.0-4.8) k/uL Monocytes # 0.5 (0-1.0) k/uL Eosinophils # 0.1 (0-0.7) k/uL Basophils # 0.0 (0-0.2) k/uL PT 10.3 (9.0-12.0) sec INR 1.0 (<1.2) APTT 22.3 (22.0-30.0) sec Sodium 141 (137-145) mmol/L Potassium 4.3 (3.5-5.1) mmol/L Chloride 103 (98-107) mmol/L Carbon Dioxide 27 (22-30) mmol/L Anion Gap 11 mmol/L BUN 11 (9-20) mg/dL Creatinine 0.65 L (0.66-1.25) mg/dL Est GFR (CKD-EPI)AfAm >90 (>60 ml/min/1.73 sqM) Est GFR (CKD-EPI)NonAf >90 (>60 ml/min/1.73 sqM) Glucose 100 H (74-99) mg/dL Plasma Lactic Acid Gregor (0.7-2.0) mmol/L Calcium 9.7 (8.4-10.2) mg/dL Phosphorus 3.6 (2.5-4.5) mg/dL Magnesium 1.8 (1.6-2.3) mg/dL Total Bilirubin 0.3 (0.2-1.3) mg/dL AST 32 (17-59) U/L ALT 25 (4-49) U/L Alkaline Phosphatase 45 (38-126) U/L Troponin I (0.000-0.034) ng/mL Total Protein 7.2 (6.3-8.2) g/dL Albumin 4.5 (3.5-5.0) g/dL 11/15/22 11/15/22 Range/Units 22:20 22:20 WBC (3.8-10.6) k/uL RBC (4.30-5.90) m/uL Hgb (13.0-17.5) gm/dL Hct (39.0-53.0) % MCV (80.0-100.0) fL MCH (25.0-35.0) pg MCHC (31.0-37.0) g/dL RDW (11.5-15.5) % Plt Count (150-450) k/uL MPV Neutrophils % % Lymphocytes % % Monocytes % % Eosinophils % % Basophils % % Neutrophils # (1.3-7.7) k/uL Lymphocytes # (1.0-4.8) k/uL Monocytes # (0-1.0) k/uL Eosinophils # (0-0.7) k/uL Basophils # (0-0.2) k/uL PT (9.0-12.0) sec INR (<1.2) APTT (22.0-30.0) sec Sodium (137-145) mmol/L Potassium (3.5-5.1) mmol/L Chloride (98-107) mmol/L Carbon Dioxide (22-30) mmol/L Anion Gap mmol/L BUN (9-20) mg/dL Creatinine (0.66-1.25) mg/dL Est GFR (CKD-EPI)AfAm (>60 ml/min/1.73 sqM) Est GFR (CKD-EPI)NonAf (>60 ml/min/1.73 sqM) Glucose (74-99) mg/dL Plasma Lactic Acid Gregor 2.0 (0.7-2.0) mmol/L Calcium (8.4-10.2) mg/dL Phosphorus (2.5-4.5) mg/dL Magnesium (1.6-2.3) mg/dL Total Bilirubin (0.2-1.3) mg/dL AST (17-59) U/L ALT (4-49) U/L Alkaline Phosphatase (38-126) U/L Troponin I <0.012 (0.000-0.034) ng/mL Total Protein (6.3-8.2) g/dL Albumin (3.5-5.0) g/dL - EKG Data -: EKG Interpreted by Me (EKG is sinus 80 pr 147 QRS 90 QTC 390) Disposition Clinical Impression: Syncope, Vasovagal syncope, Major depressive disorder, recurrent severe without psychotic features, PTSD (post-traumatic stress disorder), Cannabis use disorder Disposition: HOME SELF-CARE Condition: Good Instructions (If sedation given, give patient instructions): Syncope (ED) Is patient prescribed a controlled substance at d/c from ED?: No Referrals: Nonstaff,Physician [Primary Care Provider] - 1-2 days Time of Disposition: 22:10
[2022-11-15] MEDS ORDERED: SODIUM CHLORIDE 0.9% 1,000 ML IV STA (22:04)
[2022-11-15 22:43] LABS: Basophils % (A) 0 %; Eosinophils # (A) 0.1 k/uL (0-0.7); Eosinophils % (A) 1 %; HCT 38.2 % (39.0-53.0); HGB 12.9 gm/dL (13.0-17.5); Lymphocytes # (A) 1.4 k/uL (1.0-4.8); Lymphocytes % (A) 14 %; MCH 30.8 pg (25.0-35.0); MCHC 33.6 g/dL (31.0-37.0); MCV 91.5 fL (80.0-100.0); Mean Platelet Volume 8.1; Monocytes # (A) 0.5 k/uL (0-1.0); Monocytes % (A) 5 %; Neutrophils # (A) 7.7 k/uL (1.3-7.7); Neutrophils % (A) 79 %; Platelet Count 293 k/uL (150-450); RBC 4.18 m/uL (4.30-5.90); WBC 9.8 k/uL (3.8-10.6)
[2022-11-15 22:55] LABS: ALT 25 U/L (4-49); AST 32 U/L (17-59); African American GFR (CKD) >90 (>60 ml/min/1.73 sqM); Albumin 4.5 g/dL (3.5-5.0); Alkaline Phosphatase 45 U/L (38-126); Anion Gap 11 mmol/L; Blood Urea Nitrogen 11 mg/dL (9-20); Calcium 9.7 mg/dL (8.4-10.2); Carbon Dioxide 27 mmol/L (22-30); Chloride 103 mmol/L (98-107); Glucose 100 mg/dL (74-99); Magnesium 1.8 mg/dL (1.6-2.3); Non-African American GFR(CKD) >90 (>60 ml/min/1.73 sqM); Phosphorus 3.6 mg/dL (2.5-4.5); Potassium 4.3 mmol/L (3.5-5.1); Sodium 141 mmol/L (137-145); Total Bilirubin 0.3 mg/dL (0.2-1.3); Total Protein 7.2 g/dL (6.3-8.2)
[2022-11-15 23:01] LABS: Partial Thromboplastin Time 22.3 sec (22.0-30.0); Prothrombin Time 10.3 sec (9.0-12.0)
[2022-11-16 00:01] VITALS: BP 117/78; PULSE 97; RESP 16
== END 2022-11-15 23:30 | disposition home or self-care (01) ==
LOC: EC 21:03
DX: F33.2 Major depressive disorder, recurrent severe without psychotic features (principal); F43.10 Post-traumatic stress disorder, unspecified; F12.19 Cannabis abuse with unspecified cannabis-induced disorder; R55 Syncope and collapse; F17.200 Nicotine dependence, unspecified, uncomplicated; Z86.59 Personal history of other mental and behavioral disorders
CPT/HCPCS: 36415; 80053; 83605; 83735; 84100; 84484; 85025; 85610; 85730; 93005; 96360; 99284